=== PATIENT | female | born 1975 | race Caucasian/White ===

== ENCOUNTER 2016-06-04 10:11 | Inpatient (IN) | payer BC ==
--- NOTE | 2016-06-04 10:26 | ER Document Report ---
ED Medical Screen (RME) - General Stated Complaint: FEELING FAINT Notes: 40 yo female c/o feeling faint and dizzy x 1 week. + palpitations. pt with hx/ o ruptured diverticulitis last month. Pt c/o no energy, just not feeling well, hot flashes. Pt tachy with HR 143. denies any pain. hx/o DM, chronic sinusitis. TRAVEL OUTSIDE OF THE [place] IN LAST 30 DAYS: No - Related Data Allergies/Adverse Reactions: prednisone [Prednisone] Adverse Reaction (Verified 06/04/16 10:24) Past Medical History - Social History Family history: Reviewed & Not Pertinent Past Surgical History: Reports: Hx Cholecystectomy, Other - Sinus surgery 3. Ear tubes. - Immunizations Hx Diphtheria, Pertussis, Tetanus Vaccination: Yes Physical Exam - Vital signs Vitals: Temp Pulse Resp BP Pulse Ox 98.0 F 143 H 20 128/64 H 98 06/04/16 10:20 06/04/16 10:20 06/04/16 10:20 06/04/16 10:20 06/04/16 10:20 Course - Vital Signs Vital signs: Temp Pulse Resp BP Pulse Ox 98.0 F 143 H 20 128/64 H 98 06/04/16 10:20 06/04/16 10:20 06/04/16 10:20 06/04/16 10:20 06/04/16 10:20
[2016-06-04 10:58] LABS: ABSOLUTE EOSINOPHILS # (AUTO) 0.1 10^3/uL (0.0-0.6); ABSOLUTE LYMPHOCYTES (AUTO) 1.7 10^3/uL (0.5-4.7); ABSOLUTE MONOCYTES (AUTO) 1.1 10^3/uL (0.1-1.4); ABSOLUTE NEUT (AUTO) 8.9 10^3/uL (1.7-8.2); BASOPHILS % (AUTO) 0.3 % (0-2); EOSINOPHILS % (AUTO) 0.9 % (0-6); HEMATOCRIT 36.5 % (36.0-47.0); HEMOGLOBIN 12.6 g/dL (12.0-15.5); HGB HCT DIFFERENCE 1.3; LYMPHOCYTES % (AUTO) 14.5 % (13-45); MEAN CORPUSCULAR HEMOGLOBIN 29.3 pg (27.0-33.4); MEAN CORPUSCULAR HGB CONC 34.7 g/dL (32.0-36.0); MEAN CORPUSCULAR VOLUME 85 fl (80-97); MONOCYTES % (AUTO) 9.2 % (3-13); RED BLOOD COUNT 4.32 10^6/uL (3.72-5.28); RED CELL DISTRIBUTION WIDTH 13.9 % (11.5-14.0); SEGMENTED NEUTROPHILS % (AUTO) 75.1 % (42-78); WHITE BLOOD COUNT 11.9 10^3/uL (4.0-10.5)
[2016-06-04] MEDS ORDERED: RINGERS SOLUTION,LACTATED 1,000 ML IV PRN (11:07)
[2016-06-04 11:13] LABS: ALANINE AMINOTRANSFERASE 19 U/L (9-52); ALBUMIN 3.4 g/dL (3.5-5.0); ALKALINE PHOSPHATASE 79 U/L (38-126); ANION GAP 13 (5-19); ASPARTATE AMINO TRANSFERASE 24 U/L (14-36); BILIRUBIN,TOTAL 0.3 mg/dL (0.2-1.3); BLOOD UREA NITROGEN 8 mg/dL (7-20); CARBON DIOXIDE 31 mmol/L (22-30); CHLORIDE 99 mmol/L (98-107); CREATININE RESULT 0.59 mg/dL (0.52-1.25); GLUCOSE 162 mg/dL (75-110); LIPASE 49.5 U/L (23-300); POTASSIUM 3.4 mmol/L (3.6-5.0); SODIUM 143.2 mmol/L (137-145); TOTAL PROTEIN 7.6 g/dL (6.3-8.2)
[2016-06-04 11:51] LABS: APPEARANCE,URINE CLEAR; BILIRUBIN,URINE NEGATIVE (NEGATIVE); GLUCOSE, URINE NEGATIVE (NEGATIVE); KETONES,URINE NEGATIVE (NEGATIVE); LEUKOCYTE ESTERASE,URINE TRACE (NEGATIVE); NITRITE,URINE NEGATIVE (NEGATIVE); PROTEIN,URINE NEGATIVE (NEGATIVE); URINE SPECIFIC GRAVITY 1.008; UROBILINOGEN,URINE NEGATIVE mg/dL (<2.0)
[2016-06-04 12:10] LABS: PROTHROMBIN TIME 15.6 SEC (11.4-15.4)
[2016-06-04 12:11] LABS: PARTIAL THROMBOPLASTIN TIME 27.8 SEC (23.5-35.8)
[2016-06-04 12:29] LABS: CREATINE KINASE MB < 0.22 ng/mL (<4.55); TROPONIN I < 0.012 ng/mL
--- NOTE | 2016-06-04 13:40 | EKG REPORT ---
SEVERITY:- OTHERWISE NORMAL ECG - SINUS TACHYCARDIA : Confirmed by: Susie Hill MD 04-Jun-2016 13:39:11
[2016-06-04] MEDS ORDERED: ERTAPENEM SODIUM INJ 1 GM VIAL IV ONE (15:05)
[2016-06-04] MEDS ORDERED: RINGERS SOLUTION,LACTATED 1,000 ML IV ONE (15:06)
[2016-06-04] MEDS ORDERED: METRONIDAZOLE 500 MG/NS RTU 100 ML IV ONE (15:06)
--- NOTE | 2016-06-04 15:07 | ER Document Report ---
ED General - General Chief Complaint: Palpitations Stated Complaint: FEELING FAINT Information source: Patient Notes: This is a 40-year-old female recent hospitalization for ruptured diverticulitis/ possible tubo-ovarian abscess who is been medically managed but states she is getting worse. Her symptoms began weeks to months prior to her hospitalization in April. She describes sharp pelvic pains, difficulty with defecation. She 's had occasional fevers chills and sweats. She describes myalgias and malaise. She states she's having episodic lightheadedness, diaphoresis and near syncope. She describes the pain as sharp, intermittent and severe. It is worsened when she tries to have a bowel movement or urinate. TRAVEL OUTSIDE OF THE [place] IN LAST 30 DAYS: No - HPI Onset: Last week - Related Data Allergies/Adverse Reactions: prednisone [Prednisone] Adverse Reaction (Verified 06/04/16 10:24) Home Medications: Current Home Medications No Home Medications 06/04/16 [History] Past Medical History - General Information source: Patient - Social History Smoking Status: Unknown if Ever Smoked Frequency of alcohol use: None Drug Abuse: None Lives with: Family Family History: CAD - Paternal grandmother with coronary artery disease., DM Patient has suicidal ideation: No Patient has homicidal ideation: No Past Surgical History: Reports: Hx Cholecystectomy, Other - Sinus surgery 3. Ear tubes. - Immunizations Hx Diphtheria, Pertussis, Tetanus Vaccination: Yes Review of Systems - Review of Systems Constitutional: Chills, Fever, Malaise EENT: denies: Throat pain Cardiovascular: Palpitations, Syncope, Lightheaded Respiratory: Short of breath Gastrointestinal: Abdominal pain, Nausea, Vomiting Genitourinary: Flank pain. denies: Dysuria, Discharge Musculoskeletal: denies: Leg swelling Skin: denies: Rash Hematologic/Lymphatic: denies: Swollen glands Physical Exam - Vital signs Vitals: Temp Pulse Resp BP Pulse Ox 98.0 F 143 H 20 128/64 H 98 06/04/16 10:20 06/04/16 10:20 06/04/16 10:20 06/04/16 10:20 06/04/16 10:20 - General General appearance: Alert In distress: Mild - Appears to be feeling ill, tearful - HEENT Head: Normocephalic Mouth/Lips: Other - Thick white coating on the tongue Mucous membranes: Dry Pharynx: Other - Thrush Neck: Normal - Respiratory Respiratory status: No respiratory distress Breath sounds: Normal - Cardiovascular Rhythm: Regular, Tachycardia Murmur: No - Abdominal Inspection: Normal Bowel sounds: Normal Tenderness: Other - Moderate left lower quadrant tenderness without peritoneal signs - Back Back: Normal - Extremities General upper extremity: Normal inspection General lower extremity: Normal inspection - Neurological Orientation: AAOx4 - Psychological Associated symptoms: Anxious - Skin Skin Temperature: Warm Skin Moisture: Dry Skin Color: Normal Course - Re-evaluation Re-evalutation: 06/04/16 15:07 Dr. Dimas consulted on pt. Will come to ED. 06/04/16 15:[address] Mcadams who is willing to do the CT guided drainage of abscess at this time. Dr. Dimas in agreement with this plan. 06/04/16 22:03 - Vital Signs Vital signs: Temp Pulse Resp BP Pulse Ox 98.8 F 143 H 23 H 127/78 H 94 06/04/16 18:47 06/04/16 10:20 06/04/16 21:30 06/04/16 21:30 06/04/16 21:30 - Laboratory Result Diagrams: 06/04/16 10:34 06/04/16 10:34 Laboratory results interpreted by me: 06/04/16 06/04/16 06/04/16 10:34 10:34 10:34 WBC 11.9 H Absolute Neutrophils 8.9 H PT 15.6 H Potassium 3.4 L Carbon Dioxide 31 H Glucose 162 H Creatine Kinase Albumin 3.4 L Ur Leukocyte Esterase 06/04/16 06/04/16 10:34 11:05 WBC Absolute Neutrophils PT Potassium Carbon Dioxide Glucose Creatine Kinase < 20 L Albumin Ur Leukocyte Esterase TRACE H Discharge - Discharge Clinical Impression: Pelvic abscess Diverticulitis Qualifiers: Diverticulitis site: large intestine Diverticulitis bleeding: without bleeding Diverticulitis complication: with perforation and abscess Qualified Code(s): K57.20 - Diverticulitis of large intestine with perforation and abscess without bleeding Condition: Stable Disposition: ADMITTED INPATIENT Admitting Provider: Surgicalist Unit Admitted: Telemetry Scribe Attestation: 06/04/16 18:14 dagoberto
[2016-06-04] MEDS ORDERED: HYDROMORPHONE HCL INJ/PF 2 MG/ML AMPULE IV ONE ×2 (15:15→17:35)
[2016-06-04] MEDS ORDERED: ONDANSETRON HCL INJ/PF 4 MG/2 ML SDV IV ONE (15:15)
[2016-06-04] MEDS ORDERED: FENTANYL CITRATE INJ/PF 100 MCG/2 ML AMPUL ONE (16:10)
[2016-06-04] MEDS ORDERED: MIDAZOLAM 2 MG/2 ML INJ ONE (16:10)
[2016-06-04] MEDS ORDERED: DIPHENHYDRAMINE HCL 50 MG/ML VIAL IV ONE (18:35)
--- NOTE | 2016-06-04 18:43 | PDOC CONSULTATION ---
Consultation Consult Date: 06/04/16 Attending physician:: DIANA CARO Consult reason:: hydronephrosis History of Present Illness History of Present Illness: OFELIA SEGURA is a 40 year old female seen in consultation regarding left hydronephrosis. She came to the ER with abdominal pain and CT scan of the abdomen and pelvis demonstrated a large pelvic abscess related to her recent diverticulitis. Left hydronephrosis and hydroureter was noted that is mild. I reviewed these images. Of note there was delay in contrast excretion on the left side. She denies any flank pain at this time. She has a history of infrequent urinary tract infections. She says that she had a kidney infection about 10 years ago. Her creatinine today is normal at 0.5. No other complaints. Her urinalysis is negative except for trace leukocyte esterase. Past Surgical History Past Surgical History: Reports: Cholecystectomy, Other - Sinus surgery 3. Ear tubes. Social History Smoking Status: Unknown if Ever Smoked Frequency of Alcohol Use: None Hx Recreational Drug Use: No Drugs: None Hx Prescription Drug Abuse: No Family History Family History: CAD - Paternal grandmother with coronary artery disease., DM Parental Family History Reviewed: Yes Children Family History Reviewed: No Sibling(s) Family History Reviewed.: No Medication/Allergy Home Medications: Ciprofloxacin HCl [Cipro 500 mg Tablet] 500 mg PO Q12 #20 tablet 05/15/16 Metronidazole [Flagyl 500 mg Tablet] 500 mg PO Q6 #30 tablet 05/15/16 Promethazine HCl [Phenergan 25 mg Tablet] 25 mg PO Q4HP PRN #30 tablet 05/15/16 Tramadol HCl [Ultram 50 mg Tablet] 50 mg PO Q4HP PRN #60 tablet 05/15/16 Allergies/Adverse Reactions: prednisone [Prednisone] Adverse Reaction (Verified 06/04/16 10:24) Review of Systems Review of Systems: No dysuria, or uti symptoms. She did have urinary urgency prior to drainage of her abscess which has resolved. Lower abdominal pain. No flank pain. No other complaints. Physical Exam Vital Signs: Temp Pulse Resp BP Pulse Ox 98.0 F 143 H 19 121/68 96 06/04/16 10:20 06/04/16 10:20 06/04/16 17:30 06/04/16 17:30 06/04/16 17:30 Intake & Output 06/03/16 06/04/16 06/05/16 06:59 06:59 06:59 Weight 98.1 kg General appearance: PRESENT: mild distress Head exam: PRESENT: atraumatic Respiratory exam: PRESENT: unlabored GI/Abdominal exam: PRESENT: soft, other - lower abdominal tenderness present Gentrourinary exam: PRESENT: other - no CVT Neurological exam: PRESENT: alert, awake, oriented to person, oriented to place , oriented to time Psychiatric exam: PRESENT: appropriate affect Results Laboratory Results: 06/04/16 10:34 06/04/16 10:34 06/04/16 06/04/16 06/04/16 10:34 10:34 11:05 WBC 11.9 H RBC 4.32 Hgb 12.6 Hct 36.5 MCV 85 MCH 29.3 MCHC 34.7 RDW 13.9 Plt Count 332 Seg Neutrophils % 75.1 Lymphocytes % 14.5 Monocytes % 9.2 Eosinophils % 0.9 Basophils % 0.3 Absolute Neutrophils 8.9 H Absolute Lymphocytes 1.7 Absolute Monocytes 1.1 Absolute Eosinophils 0.1 Absolute Basophils 0.0 Sodium 143.2 Potassium 3.4 L Chloride 99 Carbon Dioxide 31 H Anion Gap 13 BUN 8 Creatinine 0.59 Est GFR ( Amer) > 60 Est GFR (Non-Af Amer) > 60 Glucose 162 H Lactic Acid Calcium 9.0 Total Bilirubin 0.3 AST 24 ALT 19 Alkaline Phosphatase 79 Total Protein 7.6 Albumin 3.4 L Lipase 49.5 Urine Color YELLOW Urine Appearance CLEAR Urine pH 7.0 Ur Specific [place] 1.008 Urine Protein NEGATIVE Urine Glucose (UA) NEGATIVE Urine Ketones NEGATIVE Urine Blood NEGATIVE Urine Nitrite NEGATIVE Ur Leukocyte Esterase TRACE H Urine WBC (Auto) 2 Urine RBC (Auto) 0 06/04/16 11:40 WBC RBC Hgb Hct MCV MCH MCHC RDW Plt Count Seg Neutrophils % Lymphocytes % Monocytes % Eosinophils % Basophils % Absolute Neutrophils Absolute Lymphocytes Absolute Monocytes Absolute Eosinophils Absolute Basophils Sodium Potassium Chloride Carbon Dioxide Anion Gap BUN Creatinine Est GFR ( Amer) Est GFR (Non-Af Amer) Glucose Lactic Acid 1.2 Calcium Total Bilirubin AST ALT Alkaline Phosphatase Total Protein Albumin Lipase Urine Color Urine Appearance Urine pH Ur Specific [place] Urine Protein Urine Glucose (UA) Urine Ketones Urine Blood Urine Nitrite Ur Leukocyte Esterase Urine WBC (Auto) Urine RBC (Auto) 06/04/16 06/04/16 10:34 10:34 Creatine Kinase < 20 L CK-MB (CK-2) < 0.22 Troponin I < 0.012 Impressions: Chest X-Ray 06/04/16 11:07 IMPRESSION: Linear atelectasis in both lung bases. Abdomen/Pelvis CT 06/04/16 11:12 IMPRESSION: 1. Progressive pelvic abscesses. Diverticulitis with a large gas and fluid containing midline abscess which has grown since April. There is a smaller abscess now noted in the left hemipelvis which appears to be causing mild left ureteral obstruction. Pertinent positive or negative findings of the imaging study called to AMINTA SOSA MD at15:05 on 06/04/2016. Percutaneous Drainage 06/04/16 15:11 IMPRESSION: CT GUIDED DRAINAGE OF THE MIDLINE PELVIC ABSCESS BETWEEN THE UTERUS AND BLADDER PERFORMED WITHOUT IMMEDIATE COMPLICATION. ASPIRATED FLUID SENT FOR TESTING ABOVE. CATHETER PLACED TO A VACUUM ACCORDION SUCTION BAG. Assessment & Plan - Diagnosis (1) Hydronephrosis Qualifiers: Hydronephrosis type: other Qualified Code(s): N13.39 - Other hydronephrosis Is this a current diagnosis for this admission?: NoPlan: 40-year-old female with left hydronephrosis and hydroureter secondary to large pelvic abscess. We discussed treatment interventions including ureteral stent and percutaneous nephrostomy. The patient has a normal creatinine. She does not have any flank pain. I expect the obstruction is self-limited as the abscess has been drained and will likely improve. I recommended a renal scan tomorrow. The patient and her family's questions were answered. We'll follow. I discussed her plan of care with Gen. surgery Dr. Dimas. (3) Hydroureter Is this a current diagnosis for this admission?: No
[2016-06-04] MEDS ORDERED: ONDANSETRON HCL INJ/PF 4 MG/2 ML SDV IV PRN (23:12)
--- NOTE | 2016-06-05 00:04 | PDOC H&P ---
History of Present Illness Admission Date/PCP: 06/04/16 18:25 History of Present Illness: OFELIA SEGURA is a 40 year old white female known to the surgery service for diverticulitis. Throughout 2015, she had approximately 5 episodes of lower abdominal pain. These were generally attributed to UTIs, however in April she was definitively diagnosed with perforated diverticulitis with a CT scan. She was managed as an inpatient. She was discharged home in late April. She continued to finish a course of antibiotics upon discharge. Her symptoms, which had initially decreased, recurred. She had severe lower abdominal pain, extension of her pain to her lower back, nausea, constipation, pain with urination, fevers, chills, hot flashes. She follow-up with Dr. Gregg in clinic on 05/29/2016. He prescribed her another 2 weeks of Levaquin and Flagyl.. She continued to have symptoms despite restarting these antibiotics. Over the last 3 days she has had severe abdominal pain as well as other symptoms: 10/10 abdominal pain, lightheadedness, dizziness, chills, hot flashes, sweats, pain with urination, fast heart rate. She has had thrush which was being treated by Dr. Gregg. Due to her thrush, she has occasional dry heaves but no nausea or vomiting per se. She presented to surgery clinic to be seen in follow-up today , however Dr. Gregg was unavailable as he was called for emergency surgery. While in clinic she had lightheadedness and sweats as well as weakness and was referred to the emergency department. In the emergency department CT scan revealed 2 large pelvic abscesses. Interventional radiology placed a drain in the larger more accessible pelvic abscess with a large volume of purulent material returned. CT scan also revealed left hydronephrosis for which urology was consult. The hydronephrosis was felt to be secondary to pelvic abscesses and inflammation. Review of systems positive for recurrent UTIs over the past year. Positive for thrush. She may have had diverticulitis, not UTIs, which were misdiagnosed due to her not reviewing her GI symptoms out of embarrassment. Review of systems also positive for some depressed mood, but no clinical diagnosis or medication. All other systems are reviewed and are negative. Past Medical History EENT Medical History: Reports: Other - Sinus troubles Endocrine Medical History: Reports: Obesity Renal/ Medical History: Reports: Other - Recurrent UTIs GI Medical History: Reports: Diverticulitis Past Surgical History Past Surgical History: Reports: Cholecystectomy, Other - Sinus surgery 3. Ear tubes. Social History Information Source: Patient Lives with: Family Smoking Status: Never Smoker Frequency of Alcohol Use: None Hx Recreational Drug Use: No Drugs: None Hx Prescription Drug Abuse: No - Advance Directive Resuscitation Status: Full Code Family History Family History: CAD - Paternal grandmother with coronary artery disease., DM Parental Family History Reviewed: Yes Children Family History Reviewed: Yes Sibling(s) Family History Reviewed.: Yes Medication/Allergy Home Medications: No Home Medications 06/04/16 Allergies/Adverse Reactions: prednisone [Prednisone] Adverse Reaction (Verified 06/04/16 10:24) Review of Systems All systems: reviewed and no additional remarkable complaints except as stated Physical Exam Vital Signs: Temp Pulse Resp BP Pulse Ox 98.6 F 116 H 20 133/71 H 97 06/04/16 22:43 06/04/16 22:43 06/04/16 22:43 06/04/16 22:43 06/04/16 22:43 General appearance: PRESENT: no acute distress, morbidly obese Head exam: PRESENT: normocephalic Eye exam: PRESENT: EOMI Mouth exam: PRESENT: other - Thick [place]-white plaque consistent with thrush Throat exam: PRESENT: other - Thick [place] white plaque consistent with thrush Neck exam: ABSENT: JVD, lymphadenopathy, tenderness, thyromegaly Respiratory exam: PRESENT: clear to auscultation rahul Cardiovascular exam: PRESENT: RRR GI/Abdominal exam: PRESENT: distended, soft, tenderness, other - Drain exiting the suprapubic area. Sanguinopurulent material is present in the drain.. ABSENT: guarding, rebound Extremities exam: ABSENT: calf tenderness, pedal edema Musculoskeletal exam: ABSENT: tenderness Neurological exam: PRESENT: alert, oriented to person, oriented to place, oriented to time, oriented to situation Psychiatric exam: PRESENT: appropriate affect, normal mood Skin exam: ABSENT: jaundice, rash Results Laboratory Results: Labs reviewed. Impressions: Chest X-Ray 06/04/16 11:07 IMPRESSION: Linear atelectasis in both lung bases. Abdomen/Pelvis CT 06/04/16 11:12 IMPRESSION: 1. Progressive pelvic abscesses. Diverticulitis with a large gas and fluid containing midline abscess which has grown since April. There is a smaller abscess now noted in the left hemipelvis which appears to be causing mild left ureteral obstruction. Pertinent positive or negative findings of the imaging study called to AMINTA SOSA MD at15:05 on 06/04/2016. Percutaneous Drainage 06/04/16 15:11 IMPRESSION: CT GUIDED DRAINAGE OF THE MIDLINE PELVIC ABSCESS BETWEEN THE UTERUS AND BLADDER PERFORMED WITHOUT IMMEDIATE COMPLICATION. ASPIRATED FLUID SENT FOR TESTING ABOVE. CATHETER PLACED TO A VACUUM ACCORDION SUCTION BAG. Status: Image reviewed by me Assessment & Plan - Diagnosis (1) Hydronephrosis Qualifiers: Hydronephrosis type: other Qualified Code(s): N13.39 - Other hydronephrosis Is this a current diagnosis for this admission?: YesPlan: urology consult. (2) Hydroureter Is this a current diagnosis for this admission?: YesPlan: Urology consult (3) Pelvic abscess Is this a current diagnosis for this admission?: YesPlan: Drain was placed in the accessible abscess. The other abscess is smaller and difficult to reach. Will treat with nonoperative management. May need to reimage in the future to determine if its resolving. (4) Morbid obesity with BMI of 40.0-44.9, adult Is this a current diagnosis for this admission?: Yes (5) Perforation of sigmoid colon due to diverticulitis Is this a current diagnosis for this admission?: YesPlan: Perforated diverticulitis with 2 abdominal abscesses. 1 abscess treated with interventional radiology placed drain. Culture sent. Nothing by mouth, IV fluids, IV antibiotics, SCDs, Lovenox, incentive spirometry, repeat labs in a.m. Urology consult for hydronephrosis/hydroureter. He feels this is secondary to the infectious process and will likely resolve with conservative management. He is considering a renal scan in the near future to reevaluate.
[2016-06-05] MEDS ORDERED: METRONIDAZOLE 500 MG/NS RTU 100 ML IV ONE (00:15)
[2016-06-05] MEDS ORDERED: FLUCONAZOLE 100 MG TABLET PO ONE (00:15)
[2016-06-05] MEDS: MORPHINE SULFATE 10 MG/ML INJ IV PRN ×4 (00:21→21:27)
[2016-06-05] MEDS: POTASSI CL 20 MEQ/D5-1/2NS 1L 1,000 ML IV PRN ×3 (00:22→21:20)
[2016-06-05] MEDS: METRONIDAZOLE 500 MG/NS RTU 100 ML IV SCH ×3 (05:27→21:19)
[2016-06-05 05:55] LABS: HEMATOCRIT 29.6 % (36.0-47.0); MEAN CORPUSCULAR HEMOGLOBIN 29.3 pg (27.0-33.4); MEAN CORPUSCULAR HGB CONC 34.4 g/dL (32.0-36.0); MEAN CORPUSCULAR VOLUME 85 fl (80-97); RED BLOOD COUNT 3.47 10^6/uL (3.72-5.28); WHITE BLOOD COUNT 7.6 10^3/uL (4.0-10.5)
[2016-06-05 06:12] LABS: HEMOGLOBIN 10.2 g/dL (12.0-15.5)
[2016-06-05 06:17] LABS: ALANINE AMINOTRANSFERASE 20 U/L (9-52); ALBUMIN 2.6 g/dL (3.5-5.0); ALKALINE PHOSPHATASE 54 U/L (38-126); ANION GAP 9 (5-19); ASPARTATE AMINO TRANSFERASE 18 U/L (14-36); BILIRUBIN,TOTAL 0.3 mg/dL (0.2-1.3); BLOOD UREA NITROGEN 7 mg/dL (7-20); CALCIUM 8.5 mg/dL (8.4-10.2); CARBON DIOXIDE 30 mmol/L (22-30); CHLORIDE 103 mmol/L (98-107); CREATININE RESULT 0.56 mg/dL (0.52-1.25); GLUCOSE 144 mg/dL (75-110); PHOSPHORUS 3.8 mg/dL (2.5-4.5); POTASSIUM 3.6 mmol/L (3.6-5.0); SODIUM 142.1 mmol/L (137-145); TOTAL PROTEIN 5.5 g/dL (6.3-8.2)
[2016-06-05] MEDS: ENOXAPARIN SODIUM INJ 40 MG/0.4 ML DISP.SYRIN SUBCUT SCH (09:16)
[2016-06-05] MEDS: FLUCONAZOLE 100 MG TABLET PO SCH (09:17)
--- NOTE | 2016-06-05 09:30 | PDOC PROGRESS REPORT ---
Subjective Progress Note for:: 06/05/16 Subjective:: feels much better status post abscess drainage. Physical Exam Vital Signs: Temp Pulse Resp BP Pulse Ox 98.6 F 102 H 18 124/59 L 97 06/05/16 07:37 06/05/16 07:37 06/05/16 07:37 06/05/16 07:37 06/05/16 07:37 Intake & Output 06/04/16 06/05/16 06/06/16 06:59 06:59 06:59 Intake Total 0 Output Total 425 Balance -425 General appearance: PRESENT: no acute distress Respiratory exam: PRESENT: clear to auscultation rahul Cardiovascular exam: PRESENT: RRR GI/Abdominal exam: PRESENT: other - Soft, nondistended, very mild lower abdominal tenderness. Drain in place with drainage of the purulent fluid Extremities exam: PRESENT: other - No swelling Results Laboratory Results: 06/05/16 05:04 06/05/16 05:04 06/05/16 06/05/16 05:04 05:04 WBC 7.6 RBC 3.47 L Hgb 10.2 L D Hct 29.6 L MCV 85 MCH 29.3 MCHC 34.4 RDW 14.0 Plt Count 248 Sodium 142.1 Potassium 3.6 Chloride 103 Carbon Dioxide 30 Anion Gap 9 BUN 7 Creatinine 0.56 Est GFR ( Amer) > 60 Est GFR (Non-Af Amer) > 60 Glucose 144 H Calcium 8.5 Phosphorus 3.8 Magnesium 2.0 Total Bilirubin 0.3 AST 18 ALT 20 Alkaline Phosphatase 54 Total Protein 5.5 L Albumin 2.6 L Impressions: Chest X-Ray 06/04/16 11:07 IMPRESSION: Linear atelectasis in both lung bases. Abdomen/Pelvis CT 06/04/16 11:12 IMPRESSION: 1. Progressive pelvic abscesses. Diverticulitis with a large gas and fluid containing midline abscess which has grown since April. There is a smaller abscess now noted in the left hemipelvis which appears to be causing mild left ureteral obstruction. Pertinent positive or negative findings of the imaging study called to AMINTA SOSA MD at15:05 on 06/04/2016. Percutaneous Drainage 06/04/16 15:11 IMPRESSION: CT GUIDED DRAINAGE OF THE MIDLINE PELVIC ABSCESS BETWEEN THE UTERUS AND BLADDER PERFORMED WITHOUT IMMEDIATE COMPLICATION. ASPIRATED FLUID SENT FOR TESTING ABOVE. CATHETER PLACED TO A VACUUM ACCORDION SUCTION BAG. Assessment & Plan - Diagnosis (1) Perforation of sigmoid colon due to diverticulitis Is this a current diagnosis for this admission?: YesPlan: Status post drainage of pelvic abscess. Patient doing much better after drainage procedure. Patient will require a sigmoidectomy but the will need to determine timing of this procedure. Continue antibiotics and the drain in light of her marked improvement with these measures.
[2016-06-05] MEDS ORDERED: ERTAPENEM SODIUM 1 GM in NORMAL SALINE 50 ML IV SCH (10:00)
[2016-06-05] MEDS ORDERED: FUROSEMIDE INJ/PF 40 MG/4 ML SDV ONE (10:30)
[2016-06-05] MEDS: ERTAPENEM SODIUM 1 GM in NORMAL SALINE 50 ML IV SCH (17:23)
[2016-06-06] MEDS: POTASSI CL 20 MEQ/D5-1/2NS 1L 1,000 ML IV PRN ×2 (06:19→17:01)
[2016-06-06] MEDS: METRONIDAZOLE 500 MG/NS RTU 100 ML IV SCH ×2 (06:19→14:14)
[2016-06-06] MEDS: ENOXAPARIN SODIUM INJ 40 MG/0.4 ML DISP.SYRIN SUBCUT SCH (08:37)
[2016-06-06] MEDS: FLUCONAZOLE 100 MG TABLET PO SCH (10:38)
[2016-06-06] MEDS: PROMETHAZINE HCL INJ 25 MG/1 ML VIAL IV PRN (12:10)
[2016-06-06] MEDS: ERTAPENEM SODIUM 1 GM in NORMAL SALINE 50 ML IV SCH (17:02)
[2016-06-06] MEDS: MORPHINE SULFATE 10 MG/ML INJ IV PRN (17:07)
--- NOTE | 2016-06-06 18:38 | PROGRESS NOTE E ---
Progress Note NAME: OFELIA SEGURA : 1975 AGE: 40Y DATE: 06/06/2016 ROOM: 404 SUBJECTIVE: The patient is feeling much better and is without any pain, no longer has any dysuria. OBJECTIVE: VITAL SIGNS: Blood pressure 132/75, temperature 98.9, pulse 96, respirations 18, saturations 98% on room air. ABDOMEN: The patient's abdomen is soft. Bowel sounds are present. The drainage from the percutaneous pelvic abscess drain is only 25 mL. ASSESSMENT: STATUS POST PERCUTANEOUS DRAINAGE OF PELVIC ABSCESS SECONDARY TO PERFORATED SIGMOID DIVERTICULITIS. PLAN: The patient is to undergo elective sigmoid colectomy with possible primary anastomosis. The patient is in need of ureteral stents, and Dr. Gregg has contacted the urologist who will place ureteral stents at the time of the surgery. DICTATING PHYSICIAN: TERESA PARISH M.D. [id number] PHY#: [id number] ID: [id number] JOB#: [id number] ACCT: [id number] cc:TERESA PARISH M.D. >
[2016-06-06] MEDS ORDERED: ACETAMINOPHEN 325 MG TABLET PO PRN (21:40)
[2016-06-07] MEDS: METRONIDAZOLE 500 MG/NS RTU 100 ML IV SCH ×4 (00:19→21:19)
[2016-06-07] MEDS: POTASSI CL 20 MEQ/D5-1/2NS 1L 1,000 ML IV PRN ×2 (05:46→17:34)
[2016-06-07] MEDS: ENOXAPARIN SODIUM INJ 40 MG/0.4 ML DISP.SYRIN SUBCUT SCH (13:23)
[2016-06-07] MEDS: FLUCONAZOLE 100 MG TABLET PO SCH (13:23)
[2016-06-07] MEDS: MORPHINE SULFATE 10 MG/ML INJ IV PRN ×2 (14:09→22:38)
[2016-06-07] MEDS: ERTAPENEM SODIUM 1 GM in NORMAL SALINE 50 ML IV SCH (17:34)
[2016-06-07] MEDS: PROMETHAZINE HCL INJ 25 MG/1 ML VIAL IV PRN (19:35)
--- NOTE | 2016-06-07 22:23 | PROGRESS NOTE E ---
Progress Note NAME: OFELIA SEGURA : 1975 AGE: 40Y DATE: 06/07/2016 ROOM: 404 SUBJECTIVE: The patient feels a little better, is presently sitting on the commode. The patient denies any dysuria at this time. OBJECTIVE: VITAL SIGNS: Noted blood pressure 146/77, temperature 97.3, pulse 106, respiratory rate is 18, saturation 99% on room air. ABDOMEN: The patient's abdomen is soft. Bowel sounds are present. Her drainage from the percutaneous drain in the pelvic abscess totals 160 mL over the last 24 hours. It is serosanguineous in appearance. ASSESSMENT: STATUS POST PERCUSSION DRAINAGE OF PELVIC ABSCESS POST PERFORATED SIGMOID DIVERTICULITIS. PLAN: The patient will undergo elective colon resection with a primary anastomosis versus colostomy depending on the findings. The patient will need ureteral stents at the time of surgery. DICTATING PHYSICIAN: TERESA PARISH M.D. [id number] PHY#: [id number] ID: [id number] JOB#: [id number] ACCT: [id number] cc:TERESA PARISH M.D. >
[2016-06-08] MEDS: POTASSI CL 20 MEQ/D5-1/2NS 1L 1,000 ML IV PRN (04:45)
[2016-06-08] MEDS: METRONIDAZOLE 500 MG/NS RTU 100 ML IV SCH ×3 (05:22→21:55)
[2016-06-08] MEDS: ENOXAPARIN SODIUM INJ 40 MG/0.4 ML DISP.SYRIN SUBCUT SCH (08:27)
[2016-06-08] MEDS: FLUCONAZOLE 100 MG TABLET PO SCH (10:20)
[2016-06-08] MEDS: PROMETHAZINE HCL INJ 25 MG/1 ML VIAL IV PRN (13:02)
[2016-06-08] MEDS: ERTAPENEM SODIUM 1 GM in NORMAL SALINE 50 ML IV SCH (18:04)
[2016-06-08] MEDS: ONDANSETRON HCL INJ/PF 4 MG/2 ML SDV IV PRN (18:41)
--- NOTE | 2016-06-08 20:43 | PROGRESS NOTE E ---
Progress Note NAME: OFELIA SEGURA : 1975 AGE: 40Y DATE: 06/08/2016 ROOM: 404 SUBJECTIVE: The patient complains of nausea as I advanced her diet to regular. OBJECTIVE: VITAL SIGNS: Blood pressure 125/69, temperature is 98, pulse rate 97, respirations 17, O2 100% by pulse oximetry. ABDOMEN: The patient's abdomen is soft. Bowel sounds are present. The percutaneous drain in the pelvis for the pelvic abscess drained only 15 mL in the last 48 hours. ASSESSMENT: PERFORATED SIGMOID DIVERTICULITIS STATUS POST PERCUTANEOUS CT-GUIDED DRAINAGE OF A PELVIC ABSCESS. PLAN: The patient is in need of ureteral stents at the time of her sigmoid colectomy which will be presumably scheduled for sometime this week. DICTATING PHYSICIAN: TERESA PARISH M.D. [id number] PHY#: [id number] ID: [id number] JOB#: [id number] ACCT: [id number] cc:TERESA PARISH M.D. >
[2016-06-09] MEDS: POTASSI CL 20 MEQ/D5-1/2NS 1L 1,000 ML IV PRN ×2 (02:19→14:18)
[2016-06-09 05:06] LABS: ABSOLUTE BASOPHILS # (AUTO) 0.1 10^3/uL (0.0-0.2); ABSOLUTE EOSINOPHILS # (AUTO) 0.2 10^3/uL (0.0-0.6); ABSOLUTE LYMPHOCYTES (AUTO) 1.6 10^3/uL (0.5-4.7); ABSOLUTE MONOCYTES (AUTO) 0.5 10^3/uL (0.1-1.4); ABSOLUTE NEUT (AUTO) 5.2 10^3/uL (1.7-8.2); BASOPHILS % (AUTO) 0.9 % (0-2); EOSINOPHILS % (AUTO) 2.6 % (0-6); HEMATOCRIT 35.8 % (36.0-47.0); HEMOGLOBIN 11.5 g/dL (12.0-15.5); HGB HCT DIFFERENCE -1.3; LYMPHOCYTES % (AUTO) 21.2 % (13-45); MEAN CORPUSCULAR VOLUME 88 fl (80-97); MONOCYTES % (AUTO) 6.2 % (3-13); RED BLOOD COUNT 4.09 10^6/uL (3.72-5.28); SEGMENTED NEUTROPHILS % (AUTO) 69.1 % (42-78); WHITE BLOOD COUNT 7.6 10^3/uL (4.0-10.5)
[2016-06-09 05:33] LABS: ALANINE AMINOTRANSFERASE 26 U/L (9-52); ALBUMIN 2.8 g/dL (3.5-5.0); ALKALINE PHOSPHATASE 62 U/L (38-126); ANION GAP 11 (5-19); ASPARTATE AMINO TRANSFERASE 28 U/L (14-36); BILIRUBIN,TOTAL 0.3 mg/dL (0.2-1.3); BLOOD UREA NITROGEN 3 mg/dL (7-20); CALCIUM 8.8 mg/dL (8.4-10.2); CARBON DIOXIDE 27 mmol/L (22-30); CHLORIDE 103 mmol/L (98-107); CREATININE RESULT 0.53 mg/dL (0.52-1.25); GLUCOSE 113 mg/dL (75-110); SODIUM 140.5 mmol/L (137-145); TOTAL PROTEIN 6.2 g/dL (6.3-8.2)
[2016-06-09] MEDS: METRONIDAZOLE 500 MG/NS RTU 100 ML IV SCH ×3 (05:33→21:54)
[2016-06-09] MEDS: ENOXAPARIN SODIUM INJ 40 MG/0.4 ML DISP.SYRIN SUBCUT SCH (10:23)
[2016-06-09] MEDS: FLUCONAZOLE 100 MG TABLET PO SCH (10:23)
[2016-06-09] MEDS: ONDANSETRON HCL INJ/PF 4 MG/2 ML SDV IV PRN ×2 (10:24→23:13)
[2016-06-09] MEDS: MORPHINE SULFATE 10 MG/ML INJ IV PRN (15:41)
--- NOTE | 2016-06-09 16:18 | PDOC PROGRESS REPORT ---
Subjective Progress Note for:: 06/09/16 Subjective:: Patient states she feels better. The drainage from her catheter has diminished. Physical Exam Vital Signs: Temp Pulse Resp BP Pulse Ox 98.0 F 111 H 16 142/78 H 100 06/09/16 12:04 06/09/16 14:00 06/09/16 12:04 06/09/16 12:04 06/09/16 12:04 Intake & Output 06/08/16 06/09/16 06/10/16 06:59 06:59 06:59 Intake Total 2713 3003 100 Output Total 175 30 10 Balance 2538 2973 90 General appearance: PRESENT: no acute distress GI/Abdominal exam: PRESENT: other - The abdomen is soft, without peritoneal signs. This minimal guarding in the side of the catheter. The catheter is putting out serosanguineous material. Results Laboratory Results: 06/09/16 04:23 06/09/16 04:23 06/09/16 06/09/16 04:23 04:23 WBC 7.6 RBC 4.09 Hgb 11.5 L Hct 35.8 L MCV 88 MCH 28.0 MCHC 32.0 RDW 14.0 Plt Count 330 Seg Neutrophils % 69.1 Lymphocytes % 21.2 Monocytes % 6.2 Eosinophils % 2.6 Basophils % 0.9 Absolute Neutrophils 5.2 Absolute Lymphocytes 1.6 Absolute Monocytes 0.5 Absolute Eosinophils 0.2 Absolute Basophils 0.1 Sodium 140.5 Potassium 4.0 Chloride 103 Carbon Dioxide 27 Anion Gap 11 BUN 3 L Creatinine 0.53 Est GFR ( Amer) > 60 Est GFR (Non-Af Amer) > 60 Glucose 113 H Calcium 8.8 Total Bilirubin 0.3 AST 28 ALT 26 Alkaline Phosphatase 62 Total Protein 6.2 L Albumin 2.8 L Impressions: Chest X-Ray 06/04/16 11:07 IMPRESSION: Linear atelectasis in both lung bases. Percutaneous Drainage 06/04/16 15:11 IMPRESSION: CT GUIDED DRAINAGE OF THE MIDLINE PELVIC ABSCESS BETWEEN THE UTERUS AND BLADDER PERFORMED WITHOUT IMMEDIATE COMPLICATION. ASPIRATED FLUID SENT FOR TESTING ABOVE. CATHETER PLACED TO A VACUUM ACCORDION SUCTION BAG. Renal Scan Nuclear Medicine 06/05/16 00:00 IMPRESSION: Symmetric perfusion, symmetric split renal function Good washout of activity from both intrarenal collecting systems post Lasix Abdomen/Pelvis CT 06/09/16 00:00 IMPRESSION: 1. DIVERTICULITIS INVOLVING THE SIGMOID COLON. PREVIOUSLY SEEN PELVIC ABSCESS HAS ESSENTIALLY RESOLVED FOLLOWING PERCUTANEOUS DRAINAGE AND INDWELLING PIGTAIL CATHETER. RESIDUAL INFLAMMATORY CHANGES IN THIS AREA WITH NO DISCRETE FLUID COLLECTION AT THE SITE OF THE PREVIOUS LARGE ABSCESS. THE 2ND FLUID COLLECTION ON THE LEFT SIDE OF THE PELVIS IS SLIGHTLY SMALLER, CURRENTLY MEASURING 2.8 CM WITH PRIOR MEASUREMENT OF 3.4 CM. 2. NO OTHER SIGNIFICANT FINDINGS. Assessment & Plan - Diagnosis (1) Perforation of sigmoid colon due to diverticulitis Is this a current diagnosis for this admission?: YesPlan: 1. Complex abscesses in the pelvis consistent with hinchey classification 2, status post intravenous antibiotics, and radiographically directed transabdominal wall pelvic catheter drain. Clinically improved. 2. I obtained a CT scan of the abdomen and pelvis today assessing interval change. The abscess has reduced markedly in size. 3. Management strategies discussed with Dr. Gregg, surgical partner. Interval sigmoid colectomy with primary anastomosis would be ideal, but notable intraoperative challenge. Given limited surgical resources and also more hospital, we will explore potential availability of a regional support, consideration for transfer. - Time Time Spent with patient: 15-24 minutes
[2016-06-09] MEDS: ERTAPENEM SODIUM 1 GM in NORMAL SALINE 50 ML IV SCH (17:36)
[2016-06-10] MEDS: METRONIDAZOLE 500 MG/NS RTU 100 ML IV SCH (06:44)
[2016-06-10] MEDS: FLUCONAZOLE 100 MG TABLET PO SCH (09:28)
[2016-06-10] MEDS: ENOXAPARIN SODIUM INJ 40 MG/0.4 ML DISP.SYRIN SUBCUT SCH (09:28)
--- NOTE | 2016-06-10 09:53 | DISCHARGE SUMMARY E ---
Discharge Summary NAME: OFELIA SEGURA : 1975 AGE: 40Y ADMITTED: 06/04/2016 DISCHARGED: 06/10/2016 DISCHARGE DIAGNOSIS: Diverticulitis with diverticular abscess. PROCEDURE PERFORMED DURING HOSPITALIZATION: Percutaneous pelvic abscess drainage performed by Dr. Mcadams on 06/04/2016. HOSPITAL COURSE: The patient underwent the above mentioned drainage. She did well postoperatively with marked improvement of her abdominal pain. She was tolerating a diet well at the time of discharge. Patient underwent a nuclear medicine renal scan, which demonstrated dilation of the left renal pelvis and calices with asymmetric increase accumulation of activity over the right collecting system. However, post Lasix, there was good washout of activity bilaterally. Patient was tolerating a diet well with minimal amount of abdominal pain at the time of discharge. A CT scan day prior to discharge demonstrated resolution of the pelvic abscess, although patient still had a left pelvic fluid collection that was diminished from 3.4 to 2.8 cm in size. Discussions were made with the patient concerning referral to a tertiary care center for definitive management of her complicated diverticulitis in light of the findings on the CT scan and the technical expertise that will be required to take care of her. She agreed to see colorectal surgery at [facility] as an outpatient. Dr. Rojas has discussed this case with the colorectal surgeon's partner at [facility] who agrees with this plan. However, the colorectal surgeon has apparently been out of town, and we will make this arrangement after the patient is discharged today. To make absolutely certain that she gets over to the tertiary care center, I will arrange a followup appointment for the patient to see me next week. The patient is encouraged to stay active. DISCHARGE MEDICATIONS: 1. Cipro 500 mg 1 p.o. b.i.d. 2. Flagyl 500 mg 1 p.o. t.i.d. 3. Percocet 5/325 1 p.o. q. 4 hours p.r.n. pain. She is to follow a low-residue diet. Drain care instructions were given to the patient prior to discharge. DICTATING PHYSICIAN: MARIA ESTHER PRICE M.D. [id number] PHY#: [id number] ID: [id number] JOB#: [id number] ACCT: [id number] cc:Kamryn VALDOVINOS, FISHER >
[2016-06-10] MEDS: MORPHINE SULFATE 10 MG/ML INJ IV PRN (10:37)
[2016-06-10 11:21] VITALS: BP 132/75
== END 2016-06-10 14:28 | disposition home or self-care (01) | DRG 391 ==
LOC: ER 10:11 → EH 18:25 → UNDOADMIN 18:25 → EH 22:30 → 4N 22:30 → EH 23:12 → 4N 23:12
PROVIDERS: ATTEND Surgery
PROC: 0W9J30Z Drainage of Pelvic Cavity with Drainage Device, Percutaneous Approach (ICD-10-PCS; principal; 2016-06-04)
DX: K57.20 Diverticulitis of large intestine with perforation and abscess without bleeding (principal); K65.1 Peritoneal abscess; N13.30 Unspecified hydronephrosis; B37.0 Candidal stomatitis; Z68.41 Body mass index [BMI] 40.0-44.9, adult; E66.9 Obesity, unspecified; E11.9 Type 2 diabetes mellitus without complications; Z90.49 Acquired absence of other specified parts of digestive tract; Z87.440 Personal history of urinary (tract) infections; Z82.49 Family history of ischemic heart disease and other diseases of the circulatory system; Z83.3 Family history of diabetes mellitus; Z88.8 Allergy status to other drugs, medicaments and biological substances
CPT/HCPCS: 36415; 71010; 74177; 75989; 78707; 80053; 81001; 81025; 82550; 82553; 83605; 83690; 83735; 84100; 84484; 85025; 85027; 85610; 85730; 87040; 87070; 87075; 87077; 87186; 87205; 93005; 93010; 94799; 96365; 96367; 96375; 96376; 99285; A9562; C1729; C1769; C1894; J1170; J1200; J1335; J1650; J1940; J2250; J2270; J2405; J2550; J3010; J3480; J3490; J7120

== ENCOUNTER 2016-06-15 17:52 | Emergency (ER) | payer BC ==
[2016-06-15 18:16] VITALS: BP 136/91
--- NOTE | 2016-06-15 18:23 | ER Document Report ---
ED Medical Screen (RME) - General Stated Complaint: POST OP CONCERNS Mode of Arrival: Ambulatory Information source: Patient Notes: 40-year-old female presents to the emergency department complaining of drainage from surgical site. Patient reports had pelvic absces drainage and has indwelling drain. States after post-op visit 2 days ago when her drain was flushed and dressing changed she has noted increased drainage. Requesting dressing change. Denies fever, n/v. I have greeted and performed a rapid initial assessment of this patient. A comprehensive ED assessment and evaluation of the patient, analysis of test results and completion of the medical decision making process will be conducted by additional ED providers. TRAVEL OUTSIDE OF THE [place] IN LAST 30 DAYS: No - Related Data Allergies/Adverse Reactions: prednisone [Prednisone] Adverse Reaction (Verified 06/04/16 10:24) Past Medical History - Social History Frequency of alcohol use: None Drug Abuse: None Family history: Reviewed & Not Pertinent Renal/ Medical History: Denies: Hx Peritoneal Dialysis GI Medical History: Reports: Hx Diverticulitis Past Surgical History: Reports: Hx Cholecystectomy, Other - Sinus surgery 3. Ear tubes. - Immunizations Hx Diphtheria, Pertussis, Tetanus Vaccination: Yes Physical Exam - Vital signs Vitals: Temp Pulse Resp BP Pulse Ox 98.7 F 107 H 18 136/91 H 99 06/15/16 18:10 06/15/16 18:10 06/15/16 18:10 06/15/16 18:10 06/15/16 18:10 - General General appearance: Appears well, Alert In distress: None Course - Vital Signs Vital signs: Temp Pulse Resp BP Pulse Ox 98.7 F 107 H 18 136/91 H 99 06/15/16 18:10 06/15/16 18:10 06/15/16 18:10 06/15/16 18:10 06/15/16 18:10
== END 2016-06-15 18:15 | disposition left against medical advice (07) ==
LOC: ER 17:52
DX: Z48.01 Encounter for change or removal of surgical wound dressing (principal); Z53.20 Procedure and treatment not carried out because of patient's decision for unspecified reasons
CPT/HCPCS: 99281

== ENCOUNTER 2016-07-02 10:19 | Inpatient (IN) | payer BC ==
[2016-07-02 15:42] LABS: ABSOLUTE BASOPHILS # (AUTO) 0.1 10^3/uL (0.0-0.2); ABSOLUTE EOSINOPHILS # (AUTO) 0.1 10^3/uL (0.0-0.6); ABSOLUTE LYMPHOCYTES (AUTO) 2.2 10^3/uL (0.5-4.7); ABSOLUTE MONOCYTES (AUTO) 0.5 10^3/uL (0.1-1.4); ABSOLUTE NEUT (AUTO) 6.8 10^3/uL (1.7-8.2); BASOPHILS % (AUTO) 0.6 % (0-2); EOSINOPHILS % (AUTO) 1.5 % (0-6); LYMPHOCYTES % (AUTO) 22.7 % (13-45); MEAN CORPUSCULAR HEMOGLOBIN 29.1 pg (27.0-33.4); MEAN CORPUSCULAR HGB CONC 33.4 g/dL (32.0-36.0); MEAN CORPUSCULAR VOLUME 87 fl (80-97); MONOCYTES % (AUTO) 4.7 % (3-13); RED BLOOD COUNT 4.49 10^6/uL (3.72-5.28); RED CELL DISTRIBUTION WIDTH 15.9 % (11.5-14.0); SEGMENTED NEUTROPHILS % (AUTO) 70.5 % (42-78); WHITE BLOOD COUNT 9.7 10^3/uL (4.0-10.5)
[2016-07-02 16:01] LABS: ANION GAP 14 (5-19); BLOOD UREA NITROGEN 10 mg/dL (7-20); CARBON DIOXIDE 26 mmol/L (22-30); CHLORIDE 101 mmol/L (98-107); CREATININE RESULT 0.58 mg/dL (0.52-1.25); GLUCOSE 100 mg/dL (75-110); POTASSIUM 4.1 mmol/L (3.6-5.0); SODIUM 140.9 mmol/L (137-145)
--- NOTE | 2016-07-02 17:43 | PDOC PROGRESS REPORT ---
Subjective Progress Note for:: 07/02/16 Subjective:: Feels better. Minimal abdominal pain. No diarrhea today. No chills today. Physical Exam Vital Signs: Temp Pulse Resp BP Pulse Ox 98.3 F 104 H 20 107/70 99 07/02/16 12:50 07/02/16 12:50 07/02/16 12:50 07/02/16 12:50 07/02/16 12:50 Intake & Output 07/01/16 07/02/16 07/03/16 06:59 06:59 06:59 Weight 95.4 kg General appearance: PRESENT: no acute distress GI/Abdominal exam: PRESENT: other - Soft, nondistended, very mild lower abdominal tenderness no peritoneal signs. Drain was pulled. Scant amount of the seropurulent drainage from the exit site. Results Laboratory Results: 07/02/16 15:30 07/02/16 15:30 07/02/16 07/02/16 07/02/16 13:50 13:50 15:30 WBC Cancelled 9.7 RBC Cancelled 4.49 Hgb Cancelled 13.0 Hct Cancelled 39.0 MCV Cancelled 87 MCH Cancelled 29.1 MCHC Cancelled 33.4 RDW Cancelled 15.9 H Plt Count Cancelled 259 Seg Neutrophils % Cancelled 70.5 Lymphocytes % Cancelled 22.7 Monocytes % Cancelled 4.7 Eosinophils % Cancelled 1.5 Basophils % Cancelled 0.6 Absolute Neutrophils Cancelled 6.8 Absolute Lymphocytes Cancelled 2.2 Absolute Monocytes Cancelled 0.5 Absolute Eosinophils Cancelled 0.1 Absolute Basophils Cancelled 0.1 Sodium Cancelled Potassium Cancelled Chloride Cancelled Carbon Dioxide Cancelled Anion Gap Cancelled BUN Cancelled Creatinine Cancelled Est GFR ( Amer) Cancelled Est GFR (Non-Af Amer) Cancelled Glucose Cancelled Calcium Cancelled 07/02/16 15:30 WBC RBC Hgb Hct MCV MCH MCHC RDW Plt Count Seg Neutrophils % Lymphocytes % Monocytes % Eosinophils % Basophils % Absolute Neutrophils Absolute Lymphocytes Absolute Monocytes Absolute Eosinophils Absolute Basophils Sodium 140.9 Potassium 4.1 Chloride 101 Carbon Dioxide 26 Anion Gap 14 BUN 10 Creatinine 0.58 Est GFR ( Amer) > 60 Est GFR (Non-Af Amer) > 60 Glucose 100 Calcium 10.0 Impressions: Abdomen/Pelvis CT 07/02/16 00:00 IMPRESSION: 1. Residual versus recurrent sigmoid diverticulitis. Small gas fluid collection to right of midline has decreased in size. 2. Percutaneous pelvic drainage catheter tip is now in the subcutaneous tissues. Assessment & Plan - Diagnosis (2) Diverticulitis large intestine Qualifiers: Diverticulitis complication: with perforation and abscess Is this a current diagnosis for this admission?: YesPlan: Patient looks better than this morning. CT scan demonstrates the residual fluid collection that has decreased from previous scan. Inflammatory changes are seen. The drain was in the subcutaneous tissue therefore was pulled. Will await stool study to make sure she does not have C. difficile. She does not have C. difficileshe feels okay will consider discharging the patient home with the by mouth antibiotics while awaiting her surgery. If she has any fever or worsened symptoms will plan repeat percutaneous drainage of her pelvic fluid collection.
[2016-07-02] MEDS: METRONIDAZOLE 500 MG TABLET PO SCH (21:15)
[2016-07-02] MEDS: NORMAL SALINE 1000 ML 1,000 ML IV PRN (21:28)
[2016-07-03] MEDS: METRONIDAZOLE 500 MG TABLET PO SCH ×2 (00:03→05:54)
[2016-07-03] MEDS ORDERED: MORPHINE SULFATE 10 MG/ML INJ ONE (04:44)
[2016-07-03] MEDS ORDERED: MORPHINE SULFATE 10 MG/ML INJ IV PRN (08:38)
[2016-07-03] MEDS: NORMAL SALINE 1000 ML 1,000 ML IV PRN (08:51)
--- NOTE | 2016-07-03 10:27 | PDOC PROGRESS REPORT ---
Subjective Progress Note for:: 07/03/16 Subjective:: Minimal abdominal discomfort. Having diarrhea. Physical Exam Vital Signs: Temp Pulse Resp BP Pulse Ox 97.4 F 100 20 136/68 H 100 07/03/16 08:18 07/03/16 08:18 07/03/16 08:18 07/03/16 08:18 07/03/16 08:18 Intake & Output 07/02/16 07/03/16 07/04/16 06:59 06:59 06:59 Intake Total 0 Output Total 101 Balance -101 Weight 95.4 kg General appearance: PRESENT: no acute distress GI/Abdominal exam: PRESENT: other - Soft, nondistended, minimal abdominal tenderness. Results Laboratory Results: 07/02/16 15:30 07/02/16 15:30 07/02/16 07/02/16 07/02/16 13:50 13:50 15:30 WBC Cancelled 9.7 RBC Cancelled 4.49 Hgb Cancelled 13.0 Hct Cancelled 39.0 MCV Cancelled 87 MCH Cancelled 29.1 MCHC Cancelled 33.4 RDW Cancelled 15.9 H Plt Count Cancelled 259 Seg Neutrophils % Cancelled 70.5 Lymphocytes % Cancelled 22.7 Monocytes % Cancelled 4.7 Eosinophils % Cancelled 1.5 Basophils % Cancelled 0.6 Absolute Neutrophils Cancelled 6.8 Absolute Lymphocytes Cancelled 2.2 Absolute Monocytes Cancelled 0.5 Absolute Eosinophils Cancelled 0.1 Absolute Basophils Cancelled 0.1 Sodium Cancelled Potassium Cancelled Chloride Cancelled Carbon Dioxide Cancelled Anion Gap Cancelled BUN Cancelled Creatinine Cancelled Est GFR ( Amer) Cancelled Est GFR (Non-Af Amer) Cancelled Glucose Cancelled Calcium Cancelled 07/02/16 15:30 WBC RBC Hgb Hct MCV MCH MCHC RDW Plt Count Seg Neutrophils % Lymphocytes % Monocytes % Eosinophils % Basophils % Absolute Neutrophils Absolute Lymphocytes Absolute Monocytes Absolute Eosinophils Absolute Basophils Sodium 140.9 Potassium 4.1 Chloride 101 Carbon Dioxide 26 Anion Gap 14 BUN 10 Creatinine 0.58 Est GFR ( Amer) > 60 Est GFR (Non-Af Amer) > 60 Glucose 100 Calcium 10.0 Impressions: Abdomen/Pelvis CT 07/02/16 00:00 IMPRESSION: 1. Residual versus recurrent sigmoid diverticulitis. Small gas fluid collection to right of midline has decreased in size. 2. Percutaneous pelvic drainage catheter tip is now in the subcutaneous tissues. Assessment & Plan - Diagnosis (2) Diverticulitis large intestine Qualifiers: Diverticulitis complication: with perforation and abscess Is this a current diagnosis for this admission?: Yes (3) C. difficile colitis Is this a current diagnosis for this admission?: YesPlan: Patient with no focal tenderness in the lower abdomen and the decreased size of fluid collection in the pelvis with a normal white blood cell count and the no fever and and no chills. Patient with diarrhea with the C. difficile positive. Will place the patient on by mouth Flagyl only while awaiting surgery in a couple weeks. Will discharge the patient home. Encourage fluid intake.
--- NOTE | 2016-07-03 10:48 | DISCHARGE SUMMARY E ---
Discharge Summary NAME: OFELIA SEGURA : 1975 AGE: 40Y ADMITTED: 07/02/2016 DISCHARGED: 07/03/2016 DISCHARGE DIAGNOSES: 1. C. difficile colitis. 2. Diverticulitis of the sigmoid colon. HOSPITAL COURSE: The patient was admitted. CBC demonstrated normal white blood cell count. Abdominal pelvic CT scan was performed. It demonstrated residual evidence of diverticulitis but her pelvic fluid collection was decreased in size. Her drain was displaced into the subcutaneous tissue, therefore, the drain was removed. Patient had no fever and no chills and she was feeling better after hydration. She was not focally tender in the lower abdomen at the time of discharge. Her C. diff study was positive, however. In light of her C. diff colitis and the above mentioned findings, I decided not to place her back on antibiotics for her diverticulitis. However, I will treat her with Flagyl 500 mg p.o. q.i.d. in the time awaiting her surgery in 2 weeks. She is now being discharged to home in fair condition. She will follow up with me next week. She is to call me for increased pain or fever. She is encouraged to stay well hydrated at home and follow a low residue diet. DICTATING PHYSICIAN: MARIA ESTHER PRICE M.D. [id number] YOHANY#: [id number] ID: [id number] JOB#: [id number] ACCT: [id number] cc:MARIA ESTHER PRICE M.D. >
[2016-07-03 12:55] VITALS: BP 107/70
== END 2016-07-03 15:24 | disposition home or self-care (01) | DRG 372 ==
LOC: 4N 10:19
PROVIDERS: ADMIT Surgery; ATTEND Surgery
DX: A04.7 Enterocolitis due to Clostridium difficile (principal); K57.20 Diverticulitis of large intestine with perforation and abscess without bleeding; E11.9 Type 2 diabetes mellitus without complications; F41.9 Anxiety disorder, unspecified; E66.9 Obesity, unspecified; Z68.38 Body mass index [BMI] 38.0-38.9, adult
CPT/HCPCS: 36415; 74177; 80048; 85025; 87493; J2270; J7030

== ENCOUNTER 2016-07-16 07:44 | Day surgery (SDC) | payer BC ==
[~2016-07-16 07:44] MED LIST: DIPHENHYDRAMINE HCL 50 MG/ML VIAL ONE; EPINEPHRINE INJ 1 MG/10 ML DISP.SYRIN ONE; FLUMAZENIL INJ 0.5 MG/5 ML VIAL IV ONE; GLUCAGON,HUMAN RECOMB 1 MG INJ ONE; NALOXONE HCL INJ/PF 0.4 MG/1 ML SDV ONE; ONDANSETRON HCL INJ/PF 4 MG/2 ML SDV ONE; PROMETHAZINE HCL INJ 25 MG/1 ML VIAL ONE
[2016-07-16] MEDS: MIDAZOLAM 2 MG/2 ML INJ ONE ×3 (08:08→08:16)
[2016-07-16] MEDS: FENTANYL CITRATE INJ/PF 100 MCG/2 ML AMPUL ONE ×4 (08:10→08:15)
--- NOTE | 2016-07-16 08:37 | Operative Report ---
Operative Report DATE OF SURGERY: 07/16/16 Operative Report: The risks, benefits and alternatives of the procedure including risks of bleeding, perforation requiring surgery are explained to the patient in detail and informed consent is obtained. Patient is taken back to the endoscopy suite. She is placed in a left, lateral decubital position. Timeout was called. An Olympus videoscope was inserted into the patient's rectum. The scope was then gradually advanced all the way to the cecum. The cecum was identified by the usual anatomical landmarks including the ileocecal valve as well as the appendiceal office. Photo documentations obtained. Prep is good. Some irrigation had to be used. The scope was then sequentially pulled back via the various segments of the colon including the ascending colon, hepatic flexure, transverse colon, descending colon, and finally into the rectosigmoid portions of the colon. Retroflexion maneuver performed. PREOPERATIVE DIAGNOSIS: Diverticulitis, previous perforation with abscess formation. Previous drain have been placed by surgery. Patient is scheduled for resection. Colonoscopy to evaluate sigmoid area. POSTOPERATIVE DIAGNOSIS: Diverticulosis is noted in the sigmoid. The area of the sigmoid is mild to moderately inflamed. It is patent. No stricturing was seen. No abnormal lesions are noted. Biopsies are obtained OPERATION: Colonoscopy with biopsy SURGEON: LATANYA TOUSSAINT ANESTHESIA: Moderate Sedation - 6 mg grams of Versed, 125 g of fentanyl. TISSUE REMOVED OR ALTERED: 2 small specimens obtained in the area of the sigmoid. COMPLICATIONS: None. ESTIMATED BLOOD LOSS: none. INTRAOPERATIVE FINDINGS: As described above. No other polyps, AVMs, obstructive lesions are noted. Mild internal hemorrhoids. PROCEDURE: Patient tolerated the procedure well. No immediate postprocedure complications are noted. Patient is discharged in good condition. She is scheduled to keep her appointment with Dr. Blackwood tomorrow. Discharge date 07/16/2016. Discharge diet clear liquids, she will need to call the surgical office in [place] to determine if she should be nothing by mouth Charge activity: Regular. She has a follow-up if surgery is planned She is instructed to call the office or proceed to the emergency room if there are any further problems or questions. We'll await on biopsies. Copies of this report along with photos are being provided to Dr Blackwood's office
[2016-07-16 09:22] VITALS: BP 111/56
== END 2016-07-16 09:40 | disposition home or self-care (01) ==
LOC: END 07:44
PROVIDERS: ATTEND Internal Medicine Gastroenterology
DX: K57.30 Diverticulosis of large intestine without perforation or abscess without bleeding (principal); K64.8 Other hemorrhoids; E66.9 Obesity, unspecified; Z79.899 Other long term (current) drug therapy
CPT/HCPCS: 45380; 88305 ×2; J2250; J3010; J0171; J1200; J1610; J2310; J2405; J2550; J3490

== ENCOUNTER 2016-12-05 05:14 | Day surgery (SDC) | payer BC ==
[2016-12-03 12:12] LABS: APPEARANCE,URINE CLEAR; BILIRUBIN,URINE NEGATIVE (NEGATIVE); GLUCOSE, URINE NEGATIVE (NEGATIVE); KETONES,URINE NEGATIVE (NEGATIVE); LEUKOCYTE ESTERASE,URINE SMALL (NEGATIVE); NITRITE,URINE NEGATIVE (NEGATIVE); PROTEIN,URINE NEGATIVE (NEGATIVE); URINE SPECIFIC GRAVITY 1.004; UROBILINOGEN,URINE NEGATIVE mg/dL (<2.0)
[2016-12-03 12:23] LABS: HEMATOCRIT 43.4 % (36.0-47.0); HEMOGLOBIN 14.2 g/dL (12.0-15.5); HGB HCT DIFFERENCE -0.8; MEAN CORPUSCULAR HEMOGLOBIN 28.9 pg (27.0-33.4); MEAN CORPUSCULAR HGB CONC 32.8 g/dL (32.0-36.0); MEAN CORPUSCULAR VOLUME 88 fl (80-97); RED BLOOD COUNT 4.92 10^6/uL (3.72-5.28); RED CELL DISTRIBUTION WIDTH 14.2 % (11.5-14.0); WHITE BLOOD COUNT 6.2 10^3/uL (4.0-10.5)
--- NOTE | 2016-12-03 12:24 | RADIOLOGY REPORT (SQ) ---
EXAM DESCRIPTION: CHEST PA/LATERAL COMPLETED DATE/TIME: 12/03/2016 12:16 pm REASON FOR STUDY: PRE OP COMPARISON: 06/04/2016 EXAM PARAMETERS: NUMBER OF VIEWS: two views TECHNIQUE: Digital Frontal and Lateral radiographic views of the chest acquired. RADIATION DOSE: NA LIMITATIONS: none FINDINGS: LUNGS AND PLEURA: No opacities, masses or pneumothorax. No pleural effusion. MEDIASTINUM AND HILAR STRUCTURES: No masses or contour abnormalities. HEART AND VASCULAR STRUCTURES: Heart normal size. No evidence for failure. BONES: No acute findings. HARDWARE: None in the chest. OTHER: No other significant finding. IMPRESSION: NO SIGNIFICANT RADIOGRAPHIC FINDING IN THE CHEST. TECHNICAL DOCUMENTATION: JOB ID: [id number] [employer]- All Rights Reserved
[2016-12-03 12:44] LABS: ANION GAP 11 (5-19); BLOOD UREA NITROGEN 13 mg/dL (7-20); CALCIUM 9.4 mg/dL (8.4-10.2); CARBON DIOXIDE 29 mmol/L (22-30); CHLORIDE 101 mmol/L (98-107); CREATININE RESULT 0.68 mg/dL (0.52-1.25); GLUCOSE 98 mg/dL (75-110); POTASSIUM 4.1 mmol/L (3.6-5.0)
--- NOTE | 2016-12-03 13:10 | EKG REPORT ---
SEVERITY:- BORDERLINE ECG - SINUS RHYTHM BORDERLINE INFERIOR Q WAVES : Confirmed by: Mendel Jones MD 03-Dec-2016 13:09:16
[~2016-12-05 05:14] MED LIST changes: +CEFAZOLIN 1 GM/D5W RTU 1 GM/50 ML RTUPB IV PRN; -DIPHENHYDRAMINE HCL 50 MG/ML VIAL ONE; -EPINEPHRINE INJ 1 MG/10 ML DISP.SYRIN ONE; -FLUMAZENIL INJ 0.5 MG/5 ML VIAL IV ONE; -GLUCAGON,HUMAN RECOMB 1 MG INJ ONE; +LACTATED RINGERS 1000 ML IV PRN; +LIDOCAINE 0.5% INJ-PF (5 MG/ML) 50 ML SDV SUBCUT PRN; -NALOXONE HCL INJ/PF 0.4 MG/1 ML SDV ONE; -ONDANSETRON HCL INJ/PF 4 MG/2 ML SDV ONE; -PROMETHAZINE HCL INJ 25 MG/1 ML VIAL ONE
[2016-12-05] MEDS ORDERED: DEXAMETHASONE SOD PHOSPHATE INJ 4 MG/1 ML VIAL ONE (06:59)
[2016-12-05] MEDS ORDERED: MIDAZOLAM 2 MG/2 ML INJ ONE (06:59)
[2016-12-05] MEDS ORDERED: ONDANSETRON HCL INJ/PF 4 MG/2 ML SDV ONE (06:59)
[2016-12-05] MEDS ORDERED: PROPOFOL INJ 200 MG/20 ML VIAL IV ONE (06:59)
[2016-12-05] MEDS ORDERED: HYDROMORPHONE HCL INJ/PF 2 MG/ML AMPULE ONE (07:00)
[2016-12-05] MEDS ORDERED: SCOPOLAMINE HYDROBROMIDE 1.5 MG PATCH.TD72 ONE (07:09)
[2016-12-05] MEDS ORDERED: DIPHENHYDRAMINE HCL 50 MG/ML VIAL IV PRN (07:46)
[2016-12-05] MEDS ORDERED: FENTANYL CITRATE INJ/PF 100 MCG/2 ML AMPUL IV PRN ×3 (07:46)
[2016-12-05] MEDS ORDERED: DIPHENHYDRAMINE HCL 50 MG/ML VIAL ONE (08:58)
--- NOTE | 2016-12-05 08:59 | OPERATIVE REPORT E ---
Operative Report NAME: OFELIA SEGURA : 1975 AGE: 41Y DATE OF SURGERY: 12/05/2016 ROOM: PREOPERATIVE DIAGNOSES: 1. ENDOMETRIAL LESION. 2. ABNORMAL UTERINE BLEEDING UNRESPONSIVE TO USUAL OUTPATIENT MANAGEMENT. 3. STENOTIC CERVIX. POSTOPERATIVE DIAGNOSES: 1. ENDOMETRIAL LESION. 2. ABNORMAL UTERINE BLEEDING UNRESPONSIVE TO USUAL OUTPATIENT MANAGEMENT. 3. STENOTIC CERVIX. 4. INABILITY TO LOCATE CERVICAL OS WAS NOTED. OPERATION: 1. Vaginoscopy. 2. Cervicoscopy. 3. Cervical biopsy. ESTIMATED BLOOD LOSS: 10 to 25 mL. FINDINGS: Cervical nub at the apex of the vagina. Scarified cervix. Multiple nooks and crannies were located and attempted to probe with small lacrimal duct probes that were available. Complete cervical and vaginal observation was performed with the operative hysteroscope under water and dry opportunities. Cervical biopsies performed at the conclusion of this aspect of the procedure of the most productive appearing area of the *------*. SURGEON: SELENA COATES M.D. INDICATIONS FOR PROCEDURE: The patient had some abnormal uterine bleeding and the appearance of what appeared to be a submucous lesion present in the endometrial cavity. She had undergone treatment for some type of cervical abnormality in the past. The usual risks of bleeding, infection, anesthesia, damage to tissues were discussed with the patient who understood. PROCEDURE: The patient was taken to the operating room and placed in the modified lithotomy position and underwent adequate MAC anesthesia *------* surgical time-out had been performed. Examination under anesthesia performed and multiple vaginal speculums were used to locate the cervix proper. Cervix was located with a single-tooth tenaculum, brought in as best as possible into the operative field. Probing and sounding ensued and no os was identified. Hysteroscope was instituted and using under water as well as dry observation of the area and probing and no os was identified. The bladder was drained during this aspect of the procedure to facilitate any further observations and no os was located. Cervical biopsies x3 were performed in the area of most concern. I elected to proceed at this point to wake her up and consideration of outpatient procedure, perhaps a laparotomy for further delineation of her uterine tissues. DICTATING PHYSICIAN: SELENA COATES M.D. [id number] PHY#: [id number] ID: [id number] JOB#: [id number] ACCT: [id number] cc:SELENA COATES M.D. >
[2016-12-05] MEDS ORDERED: MORPHINE INJ 4 MG DOSE (EDIT ROUTE) INJ PRN (09:00)
[2016-12-05] MEDS ORDERED: PROMETHAZINE HCL INJ 25 MG/1 ML VIAL IM PRN (09:00)
[2016-12-05] MEDS ORDERED: OXYCODONE-ACETAMINOPHEN 5-325 MG TABLET PO PRN (09:00)
[2016-12-05 11:40] VITALS: BP 133/85
[2016-12-05] MEDS ORDERED: IBUPROFEN 800 MG TABLET PO SCH (14:00)
== END 2016-12-05 10:40 | disposition home or self-care (01) ==
LOC: OROUT 05:14
PROVIDERS: ATTEND Specialist
PROC: 0UBC8ZX Excision of Cervix, Via Natural or Artificial Opening Endoscopic, Diagnostic (ICD-10-PCS; 2016-12-05)
PROC: 0UBG8ZX Excision of Vagina, Via Natural or Artificial Opening Endoscopic, Diagnostic (ICD-10-PCS; principal; 2016-12-05 07:15)
DX: N72 Inflammatory disease of cervix uteri (principal); N93.9 Abnormal uterine and vaginal bleeding, unspecified; N88.2 Stricture and stenosis of cervix uteri; I10 Essential (primary) hypertension; E66.9 Obesity, unspecified; Z68.41 Body mass index [BMI] 40.0-44.9, adult
CPT/HCPCS: 93005; 86900; 86901; 36415; 86850; 85027; 81025; 80048; 81001; 88305 ×2; 71020; 93010; 57421; J2250; J0690; J1100; J1200; J1170; J2405; J2704; 952

== ENCOUNTER 2017-09-14 11:17 | Emergency (ER) | payer BC ==
--- NOTE | 2017-09-14 11:51 | ER Document Report ---
ED Medical Screen (RME) - General Chief Complaint: Abdominal Pain Stated Complaint: LOWER ABDOMINAL PAIN Time Seen by Provider: 09/14/17 11:50 Notes: Patient states that she was having a normal day when she leaned back in a chair to stretch. She states that she had sudden intense pain in the left lower quadrant of her abdomen that made her pass out. She states she has had a previous partial colectomy. She also has polycystic ovarian disease. She states that she had a menstrual cycle one time at the age of 13 and then never had another menstrual cycle until she was 38 years old. States she has never been . TRAVEL OUTSIDE OF THE [place] IN LAST 30 DAYS: No - Related Data Allergies/Adverse Reactions: prednisone [Prednisone] Adverse Reaction (Verified 12/03/16 11:21) Past Medical History - Social History Chew tobacco use (# tins/day): No Frequency of alcohol use: None Drug Abuse: None Family history: Reviewed & Not Pertinent - Past Medical History Cardiac Medical History: Denies: Hx Coronary Artery Disease, Hx Heart Attack, Hx Hypertension Pulmonary Medical History: Denies: Hx Asthma, Hx Bronchitis, Hx COPD, Hx Pneumonia Neurological Medical History: Denies: Hx Cerebrovascular Accident, Hx Seizures Endocrine Medical History: Reports: Hx Diabetes Mellitus Type 2 - pre diabetic Renal/ Medical History: Denies: Hx Peritoneal Dialysis GI Medical History: Reports: Hx Diverticulitis Musculoskeltal Medical History: Denies Hx Arthritis Psychiatric Medical History: Reports: Hx Depression Past Surgical History: Reports: Hx Cholecystectomy, Other - Sinus surgery 3. Ear tubes.. Denies: Hx Hysterectomy - Immunizations Hx Diphtheria, Pertussis, Tetanus Vaccination: No Physical Exam - Vital signs Vitals: Pulse Resp BP Pulse Ox 89 20 109/58 L 100 09/14/17 11:23 09/14/17 11:23 09/14/17 11:23 09/14/17 11:23 Course - Vital Signs Vital signs: Temp Pulse Resp BP Pulse Ox 97.5 F 89 16 109/58 L 100 09/14/17 11:25 09/14/17 11:23 09/14/17 11:27 09/14/17 11:23 09/14/17 11:23
[2017-09-14 12:51] LABS: APPEARANCE,URINE SLIGHTLY-CLOUDY; BILIRUBIN,URINE NEGATIVE (NEGATIVE); COLOR,URINE YELLOW; GLUCOSE, URINE NEGATIVE (NEGATIVE); KETONES,URINE NEGATIVE (NEGATIVE); LEUKOCYTE ESTERASE,URINE NEGATIVE (NEGATIVE); NITRITE,URINE NEGATIVE (NEGATIVE); PROTEIN,URINE 30 mg/dL (NEGATIVE); URINE SPECIFIC GRAVITY 1.024; UROBILINOGEN,URINE NEGATIVE mg/dL (<2.0)
--- NOTE | 2017-09-14 13:22 | EKG REPORT ---
SEVERITY:- NORMAL ECG - SINUS RHYTHM : Confirmed by: Mendel Jones MD 14-Sep-2017 13:21:26
[2017-09-14 15:06] LABS: ABSOLUTE EOSINOPHILS # (AUTO) 0.1 10^3/uL (0.0-0.6); ABSOLUTE LYMPHOCYTES (AUTO) 2.1 10^3/uL (0.5-4.7); ABSOLUTE MONOCYTES (AUTO) 0.3 10^3/uL (0.1-1.4); ABSOLUTE NEUT (AUTO) 6.8 10^3/uL (1.7-8.2); BASOPHILS % (AUTO) 0.5 % (0-2); EOSINOPHILS % (AUTO) 0.7 % (0-6); HEMATOCRIT 44.7 % (36.0-47.0); HEMOGLOBIN 15.5 g/dL (12.0-15.5); LYMPHOCYTES % (AUTO) 22.2 % (13-45); MEAN CORPUSCULAR HEMOGLOBIN 30.3 pg (27.0-33.4); MEAN CORPUSCULAR HGB CONC 34.6 g/dL (32.0-36.0); MEAN CORPUSCULAR VOLUME 88 fl (80-97); MONOCYTES % (AUTO) 3.6 % (3-13); PLATELET COUNT 201 10^3/uL (150-450); RED BLOOD COUNT 5.11 10^6/uL (3.72-5.28); RED CELL DISTRIBUTION WIDTH 12.9 % (11.5-14.0); TOTAL CELLS COUNTED % (AUTO) 100 %; WHITE BLOOD COUNT 9.4 10^3/uL (4.0-10.5)
[2017-09-14 15:25] LABS: ALANINE AMINOTRANSFERASE 49 U/L (9-52); ALBUMIN 4.6 g/dL (3.5-5.0); ALKALINE PHOSPHATASE 68 U/L (38-126); ANION GAP 14 (5-19); ASPARTATE AMINO TRANSFERASE 34 U/L (14-36); BILIRUBIN,DIRECT 0.3 mg/dL (0.0-0.4); BILIRUBIN,TOTAL 0.7 mg/dL (0.2-1.3); BLOOD UREA NITROGEN 14 mg/dL (7-20); CALCIUM 9.7 mg/dL (8.4-10.2); CARBON DIOXIDE 28 mmol/L (22-30); CHLORIDE 101 mmol/L (98-107); GLUCOSE 140 mg/dL (75-110); POTASSIUM 4.4 mmol/L (3.6-5.0); SODIUM 142.7 mmol/L (137-145); TOTAL PROTEIN 7.9 g/dL (6.3-8.2)
--- NOTE | 2017-09-14 18:54 | RADIOLOGY REPORT (SQ) ---
EXAM DESCRIPTION: CT ABD/PELVIS WITH IV ORAL COMPLETED DATE/TIME: 09/14/2017 6:26 pm REASON FOR STUDY: Lower midline abdominal pain COMPARISON: 07/02/2016 TECHNIQUE: CT scan of the abdomen and pelvis performed using helical scanning technique with dynamic intravenous contrast injection. No oral contrast. Images reviewed with lung, soft tissue, and bone windows. Reconstructed coronal and sagittal MPR images reviewed. Delayed images for evaluation of the urinary system also acquired. All images stored on PACS. All CT scanners at this facility use dose modulation, iterative reconstruction, and/or weight based d osing when appropriate to reduce radiation dose to as low as reasonably achievable (ALARA). [facility]: Dose Right [facility]: CareDose [facility]: Dose Right [facility]: Teradose 4D [facility]: PrimeraDx ([employer]) CONTRAST TYPE AND DOSE: contrast/concentration: Isovue 370.00 mg/ml; Total Contrast Delivered: 100.0 ml; Total Saline Delivered: 50.0 ml RENAL FUNCTION: BUN 14 creatinine 0.72 RADIATION DOSE: CT Rad equipment meets quality standard of care and radiation dose reduction techniq ues were employed. CTDIvol: 20.8 - 21.1 mGy. DLP: 2483 mGy-cm.. LIMITATIONS: None. FINDINGS: LOWER CHEST: No significant findings. No nodules or infiltrates. LIVER: Normal size. No masses. No dilated ducts. SPLEEN: Normal size. No focal lesions. PANCREAS: No masses. No significant calcifications. No adjacent inflammation or peripancreatic fluid collections. Pancreatic duct not dilated. GALLBLADDER: No identified stones by CT criteria. No inflammatory changes to suggest cholecystitis. ADRENAL GLANDS: No significant masses or asymmetry. RIGHT KIDNEY AND URETER: No solid masses. No significant calcifications. No hydronephrosis or hyd roureter. LEFT KIDNEY AND URETER: No solid masses. No significant calcifications. No hydronephrosis or hydr oureter. AORTA AND VESSELS: No aneurysm. No dissection. Renal arteries, SMA, celiac without stenosis. RETROPERITONEUM: No retroperitoneal adenopathy, hemorrhage or masses. BOWEL AND PERITONEAL CAVITY: No masses or inflammatory changes. No free fluid or peritoneal masses. APPENDIX: Normal. PELVIS: No mass. No free fluid. Normal bladder. ABDOMINAL WALL: A very small umbilical hernia contains only fat. BONES: No significant abnormality. OTHER: No other significant finding. IMPRESSION: 1. There are no acute findings in the abdomen or pelvis to explain the patient's pain. 2. There is a very small umbilical hernia. TECHNICAL DOCUMENTATION: JOB ID: [id number] Quality ID # [id number]: Final reports with documentation of one or more dose reduction techniques (e.g., Au tomated exposure control, adjustment of the mA and/or kV according to patient size, use of iterative reconstruction technique) 2010 [employer]- All Rights Reserved Reading location - IP/workstation name: [email or web address]
[2017-09-14] MEDS ORDERED: ONDANSETRON HCL INJ/PF 4 MG/2 ML SDV IV ONE (18:57)
[2017-09-14] MEDS ORDERED: ONDANSETRON HCL INJ/PF 4 MG/2 ML SDV ONE ×2 (18:59→19:00)
--- NOTE | 2017-09-14 19:20 | ER Document Report ---
ED GI/ - General Chief Complaint: Abdominal Pain Stated Complaint: LOWER ABDOMINAL PAIN Time Seen by Provider: 09/14/17 11:50 Notes: Patient says she awakened this morning feeling fine. Goes to a weight loss clinic and went there this morning and while there, sitting through a meeting, she suddenly developed severe left lower quadrant pain going across the lower abdomen to the right lower quadrant region. It was associated with severe nausea, but she did not vomit. She said that she actually passed out and became very sweaty and had her head on the table. The pain seemed to subside somewhat after about 30 minutes and the pain localized in a small area just below the umbilicus. She does not feel any swelling in that area. Has not been sick recently. No UTI symptoms. No fever, but did have the mentioned sweats. Patient has never been . She started have her menstrual cycle when she was 13 years old and it stopped almost immediately and did not resume until she was 38 years of age. She is on Provera to regulate her cycles. She has been diagnosed with PCOS. Has had her gallbladder removed. Last year, patient was diagnosed with diverticulitis and had 10 or 12 inches of her bowel removed. Patient is overweight and trying to lose weight. She has some hormonal changes with facial hair production. And has been prescribed Spironolactone for this condition. No other significant past medical history. TRAVEL OUTSIDE OF THE [place] IN LAST 30 DAYS: No - Related Data Allergies/Adverse Reactions: prednisone [Prednisone] Adverse Reaction (Verified 12/03/16 11:21) Past Medical History - Social History Smoking Status: Never Smoker Chew tobacco use (# tins/day): No Frequency of alcohol use: None Drug Abuse: None Family History: Reviewed & Not Pertinent, CAD - Paternal grandmother with coronary artery disease., DM Patient has suicidal ideation: No Patient has homicidal ideation: No - Past Medical History Cardiac Medical History: Denies: Hx Coronary Artery Disease, Hx Heart Attack, Hx Hypertension Pulmonary Medical History: Denies: Hx Asthma, Hx Bronchitis, Hx COPD, Hx Pneumonia Neurological Medical History: Denies: Hx Cerebrovascular Accident, Hx Seizures Endocrine Medical History: Reports: Hx Diabetes Mellitus Type 2 - pre diabetic GI Medical History: Reports: Hx Diverticulitis Musculoskeltal Medical History: Denies Hx Arthritis Psychiatric Medical History: Reports: Hx Depression Past Surgical History: Reports: Hx Cholecystectomy, Other - Sinus surgery 3. Ear tubes.. Denies: Hx Hysterectomy - Immunizations Hx Diphtheria, Pertussis, Tetanus Vaccination: No Review of Systems - Review of Systems Notes: REVIEW OF SYSTEMS: CONSTITUTIONAL : Denies fever. EENT: Denies eye, ear, nose or mouth or throat pain or other symptoms. CARDIOVASCULAR: Denies chest pain. RESPIRATORY: Denies cough, chest congestion, or shortness of breath. GASTROINTESTINAL: See HPI.. GENITOURINARY: Denies difficulty or painful urinating, urinary frequency, blood in urine. MUSCULOSKELETAL: Denies back or neck pain. Denies joint pain or swelling. SKIN: Denies rash or skin lesions. NEUROLOGICAL: Denies LOC or altered mental status. Denies headache. Denies sensory loss or motor deficits. ALL OTHER SYSTEMS REVIEWED AND NEGATIVE. Physical Exam - Vital signs Vitals: Pulse Resp BP Pulse Ox 89 20 109/58 L 100 09/14/17 11:23 09/14/17 11:23 09/14/17 11:09/14/17 11:23 Interpretation: Normal - Notes Notes: PHYSICAL EXAMINATION: GENERAL: Well-appearing, in no acute distress. Anxious. Vital signs are normal. HEAD: Atraumatic, normocephalic. EYES: Pupils equal round and reactive to light, extraocular movements intact. ENT: oropharynx clear without exudates. Moist mucous membranes. NECK: Normal range of motion, supple. LUNGS: Breath sounds clear and equal bilaterally. HEART: Regular rate and rhythm without murmurs. ABDOMEN: Obese, soft, not really tender except for very minimal amount of tenderness just below the umbilicus. No bulge or fullness noted like a herniated [place]. No exquisite tenderness to press or mesh in that area. No guarding or rebound. No masses. BACK: No tenderness throughout entire back. EXTREMITIES: Normal range of motion without pain. NEUROLOGICAL: Normal speech, normal gait. Normal sensory, motor, and reflex exams. Awake, alert, and oriented x3. Cranial nerves normal. PSYCH: Normal mood, normal affect. SKIN: Warm, dry, no rashes. Course - Vital Signs Vital signs: Temp Pulse Resp BP Pulse Ox 97.5 F 89 16 109/58 L 100 09/14/17 11:25 09/14/17 11:23 09/14/17 11:27 09/14/17 11:09/14/17 11:23 - Laboratory Result Diagrams: 09/14/17 14:47 09/14/17 14:47 Laboratory results interpreted by me: 09/14/17 09/14/17 12:24 14:47 Glucose 140 H Urine Protein 30 H - Diagnostic Test Radiology reviewed: Image reviewed, Reports reviewed - CT scan of the abdomen and pelvis showed a small umbilical hernia with some fat in it, but no bowel in the hernia. Otherwise the veins on the CT scans of the abdomen and pelvis. Discharge - Discharge Clinical Impression: Abdominal pain, Umbilical hernia, Umbilical hernia without obstruction and without gangrene Condition: Stable Disposition: HOME, SELF-CARE Additional Instructions: ABDOMINAL PAIN: There are many causes of abdominal pain. Pain can mean a serious problem requiring surgery (such as appendicitis). It can also be an innocent problem that goes away on its own (such as a viral infection). Often, time must pass to determine the cause of pain. The physician does not feel that hospitalization is necessary, at present. Things may change within the next 24 hours. Call the doctor or come back for re- examination if any problems occur, such as: (1) Pain that becomes more severe, steady, or becomes concentrated in one specific area. Also, pain that is more severe with movement or coughing. (2) Vomiting that persists or becomes more frequent. (3) Blood in the vomitus, urine, or bowel movements. Blood in the stool may have a tarry or black appearance. (4) Shaking chills or fever greater than 100 degrees F. (5) The abdomen becomes more distended or swollen. (6) Bowel movements cease. (7) Failure to improve as expected. NORMAL EXAM AND WORKUP: At this time, with the exception of your CT scan findings of a small umbilical hernia of fat, your examination and workup show no significant abnormality. No significant abnormal physical findings are noted. All laboratory, EKG, and imaging (x-ray, CT scans, ultrasound) studies that were ordered show no significant abnormality. Although your examination and all studies that were ordered showed no significant abnormal finding, there are no examinations and no studies that are 100% accurate. There is always the possibility that some abnormality could exist and not be detected with physical examination or within the limits and capabilities of laboratory and other studies. You should return or follow up as you were instructed on your visit today for further evaluation if your symptoms do not resolve. Umbilical Hernia There is a hernia in the belly-button area, called an umbilical hernia. There's a weak spot in the abdominal wall where the umbilical cord was attached. Sometimes this weak spot opens up, and bowel slips out of the abdominal cavity, creating a bulge under the skin at the naval. In infants, a small umbilical hernia may seal off by itself. Adults usually need surgery to repair the hernia. It's important that you follow up as recommended. For now, avoid straining , heavy lifting, and vigorous exercise. If the hernia has just appeared and the naval area is painful, apply ice packs to reduce swelling. Complications occur if bowel gets tightly stuck in the hernia. You should come back immediately if the area becomes increasingly painful, swollen, or discolored, or if you develop abdominal pain and vomiting. Your umbilical hernia contains fat tissue, but no bowel. Therefore, there is no obstruction or perforation or need for surgery. Fat containing hernias can be painful but otherwise are not considered surgical conditions. Another possibility is that with your known condition of PCO S, you might have ruptured an ovarian cyst which could cause you to have pain, but leaves no residual findings that you can see on a CT scan. ANT[place]AUSEA MEDICATION: You have been given a medication to suppress nausea and vomiting. This type of medication can be given as a shot, pill, or suppository. It will usually last for many hours. Pills and shots usually last six to eight hours, suppositories last about 12 hours. For the typical illness, only one or two doses of the medication may be necessary. Mild lightheadedness may occur. This type of medicine can cause drowsiness. Do not drive or operate dangerous machinery while under its influence. Do not mix with alcohol. See your doctor at once if you have muscle spasms or tightness, or uncontrollable motions (particularly of the neck, mouth, or jaw). Persistent vomiting or severe lightheadedness should also be evaluated by the physician. You have indicated that you have pain medications as well as nausea medication at home and wished to take that medicine and not be prescribed any more medication by us perry. FOLLOW-UP CARE: If you have been referred to a physician for follow-up care, call the physician s office for an appointment as you were instructed or within the next two days. If you experience worsening or a significant change in your symptoms, notify the physician immediately or return to the Emergency Department at any time for re-evaluation. If it anytime tomorrow, you are feeling worse, return for us to reevaluate your condition. Referrals: MARCUS TROTTER MD [Primary Care Provider] - Follow up as needed
[2017-09-14 19:52] VITALS: BP 135/91
== END 2017-09-14 19:30 | disposition home or self-care (01) ==
LOC: ER 11:17
DX: K40.90 Unilateral inguinal hernia, without obstruction or gangrene, not specified as recurrent (principal); E28.2 Polycystic ovarian syndrome; Z79.3 Long term (current) use of hormonal contraceptives; Z79.899 Other long term (current) drug therapy; E66.3 Overweight; Z68.41 Body mass index [BMI] 40.0-44.9, adult; R10.33 Periumbilical pain; R11.0 Nausea; R55 Syncope and collapse; R61 Generalized hyperhidrosis; Z87.19 Personal history of other diseases of the digestive system; Z90.49 Acquired absence of other specified parts of digestive tract
CPT/HCPCS: 93005; 99284; 96374; 36415; 85025; 81025; 80053; 81001; 74177; 93010; J2405

== ENCOUNTER → 2017-11-23 | Outpatient (CLI) | payer BC ==
--- NOTE | 2017-11-23 13:19 | RADIOLOGY REPORT (SQ) ---
EXAM DESCRIPTION: CT ABD/PELVIS NO ORAL OR IV COMPLETED DATE/TIME: 11/23/2017 12:57 pm REASON FOR STUDY: RLQ PAIN (R10.31) R10.31 RIGHT LOWER QUADRANT PAIN COMPARISON: Multiple previous CT abdomen pelvis exams including 09/14/2017, 07/02/2016, 06/09/2016, 06/04, 05/08/2016 TECHNIQUE: CT scan of the abdomen and pelvis performed without intravenous or oral contrast. Images reviewed with lung, soft tissue, and bone windows. Reconstructed coronal and sagittal MPR images revi ewed. All images stored on PACS. All CT scanners at this facility use dose modulation, iterative reconstruction, and/or weight based d osing when appropriate to reduce radiation dose to as low as reasonably achievable (ALARA). [facility]: Dose Right [facility]: CareDose [facility]: Dose Right [facility]: Teradose 4D [facility]: [employer] RADIATION DOSE: CT Rad equipment meets quality standard of care and radiation dose reduction techniq ues were employed. CTDIvol: 27.8 mGy. DLP: 1626 mGy-cm.mGy. LIMITATIONS: None. FINDINGS: Patient had multiple episodes of diverticulitis without abscess. She is post sigmoid franklin ctomy, with a row of anastomotic fernando at the rectosigmoid on axial images 73-75. Few colonic dive rticuli are present on the current study without CT evidence of acute diverticulitis. The right ovary measures 5 x 3.4 cm on axial image 75. This is larger than on 09/14/2014 were it tony ured about 3.7 x 3 cm in size. Patient may have a right ovarian cyst causing right lower quadrant pa in. Normal appendix, retrocecal location axial images 66-71. No free pelvic fluid. LOWER CHEST: No significant findings. No nodules or infiltrates. NON-CONTRASTED LIVER, SPLEEN, ADRENALS: Evaluation limited by lack of IV contrast. No identified sign ificant masses. PANCREAS: No masses. No peripancreatic inflammatory changes. GALLBLADDER: Surgically absent RIGHT KIDNEY AND URETER: No suspicious masses. Assessment limited by lack of IV contrast. No signif icant calcifications. No hydronephrosis or hydroureter. LEFT KIDNEY AND URETER: No suspicious masses. Assessment limited by lack of IV contrast. No signifi cant calcifications. No hydronephrosis or hydroureter. AORTA AND RETROPERITONEUM: No aneurysm. No retroperitoneal masses or adenopathy. BOWEL AND PERITONEAL CAVITY: No free intraperitoneal air or fluid. No CT evidence of bowel obstructi on. No CT findings worrisome for diverticulitis or appendicitis. Post sigmoid colectomy. APPENDIX: Normal. PELVIS, BLADDER, AND ABDOMINAL WALL:Urinary bladder, abdominal wall unremarkable. No free pelvic flu id. No adenopathy. Uterus, left ovary unremarkable. Right ovary as above BONES: No significant findings. OTHER: No other significant finding. IMPRESSION: Enlarged right ovary compared to previous studies, question right ovarian cyst. No CT evidence of appendicitis. Post sigmoid colectomy. No CT evidence of acute diverticulitis COMMENT: Quality ID # [id number]: Final reports with documentation of one or more dose reduction techniques (e.g., Automated exposure control, adjustment of the mA and/or kV according to patient size, use of iterative reconstruction technique) TECHNICAL DOCUMENTATION: JOB ID: [id number] [employer]- All Rights Reserved Reading location - IP/workstation name: [facility]
[2017-11-23 13:33] LABS: ABSOLUTE BASOPHILS # (AUTO) 0.1 10^3/uL (0.0-0.2); ABSOLUTE EOSINOPHILS # (AUTO) 0.1 10^3/uL (0.0-0.6); ABSOLUTE LYMPHOCYTES (AUTO) 2.5 10^3/uL (0.5-4.7); ABSOLUTE MONOCYTES (AUTO) 0.6 10^3/uL (0.1-1.4); ABSOLUTE NEUT (AUTO) 12.1 10^3/uL (1.7-8.2); BASOPHILS % (AUTO) 0.5 % (0-2); EOSINOPHILS % (AUTO) 0.9 % (0-6); HEMATOCRIT 40.1 % (36.0-47.0); HEMOGLOBIN 13.9 g/dL (12.0-15.5); LYMPHOCYTES % (AUTO) 16.3 % (13-45); MEAN CORPUSCULAR HEMOGLOBIN 31.1 pg (27.0-33.4); MEAN CORPUSCULAR HGB CONC 34.8 g/dL (32.0-36.0); MEAN CORPUSCULAR VOLUME 89 fl (80-97); PLATELET COUNT 231 10^3/uL (150-450); RED BLOOD COUNT 4.48 10^6/uL (3.72-5.28); SEGMENTED NEUTROPHILS % (AUTO) 78.3 % (42-78); TOTAL CELLS COUNTED % (AUTO) 100 %; WHITE BLOOD COUNT 15.5 10^3/uL (4.0-10.5)
[2017-11-23 13:58] LABS: ALANINE AMINOTRANSFERASE 37 U/L (9-52); ALBUMIN 4.1 g/dL (3.5-5.0); ALKALINE PHOSPHATASE 80 U/L (38-126); ANION GAP 16 (5-19); ASPARTATE AMINO TRANSFERASE 20 U/L (14-36); BILIRUBIN,DIRECT 0.4 mg/dL (0.0-0.4); BILIRUBIN,TOTAL 0.8 mg/dL (0.2-1.3); BLOOD UREA NITROGEN 16 mg/dL (7-20); CALCIUM 9.1 mg/dL (8.4-10.2); CARBON DIOXIDE 24 mmol/L (22-30); CHLORIDE 103 mmol/L (98-107); GLUCOSE 134 mg/dL (75-110); LIPASE 41.7 U/L (23-300); POTASSIUM 4.1 mmol/L (3.6-5.0); SODIUM 142.6 mmol/L (137-145); TOTAL PROTEIN 7.1 g/dL (6.3-8.2)
== END ==
LOC: RAD 12:33
PROVIDERS: ATTEND Physician Assistant
DX: R10.31 Right lower quadrant pain (principal); R82.90 Unspecified abnormal findings in urine
CPT/HCPCS: 36415; 74176; 80053; 83690; 85025; 87086

== ENCOUNTER 2019-08-23 08:59 | Emergency (ER) | payer BC, OTHER ==
--- NOTE | 2019-08-23 09:24 | EKG REPORT ---
SEVERITY:- ABNORMAL ECG - SINUS TACHYCARDIA NONSPECIFIC T ABNORMALITIES, INFERIOR LEADS : Confirmed by: Radha Lyman 23-Aug-2019 09:23:47
--- NOTE | 2019-08-23 09:34 | ER Document Report ---
ED General - General Chief Complaint: Flank Pain Stated Complaint: RIGHT FLANK PAIN Time Seen by Provider: 08/23/19 09:09 Primary Care Provider: BAKARI NORTON PA [Primary Care Provider] - Follow up as needed Information source: Patient TRAVEL OUTSIDE OF THE [place] IN LAST 30 DAYS: No - HPI Onset: Last week Onset/Duration: Gradual, Worse Quality of pain: Throbbing Severity: Moderate Pain Level: 2 Context: Patient is a 43-year-old female presenting to the emergency department chief complaint of right flank and back pain. Patient states she was seen by telemedicine on Thursday and prescribed Cipro for presumed urinary tract i nfection. Patient states since that point in time she has been taking her medication but the pain has intensified. Patient further states she is currently on her menstrual cycle. Patient states that she has been on her menses for approximately 1 month. 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 Patient denies travel history trauma history sick contacts no one else at home is ill. Patient currently is not working. Associated symptoms: None Exacerbated by: Denies Relieved by: Denies Similar symptoms previously: Yes Recently seen / treated by doctor: Yes - Related Data Allergies/Adverse Reactions: prednisone [Prednisone] Adverse Reaction (Verified 12/03/16 11:21) Home Medications: cipro Past Medical History - General Information source: Patient - Social History Smoking Status: Never Smoker Chew tobacco use (# tins/day): No Frequency of alcohol use: None Drug Abuse: None Lives with: Alone Family History: Reviewed & Not Pertinent, CAD - Paternal grandmother with coronary artery disease., DM Patient has suicidal ideation: No Patient has homicidal ideation: No - Past Medical History Cardiac Medical History: Denies: Hx Coronary Artery Disease, Hx Heart Attack, Hx Hypertension Pulmonary Medical History: Denies: Hx Asthma, Hx Bronchitis, Hx COPD, Hx Pneumonia Neurological Medical History: Denies: Hx Cerebrovascular Accident, Hx Seizures Endocrine Medical History: Reports: Hx Diabetes Mellitus Type 2 - pre diabetic Renal/ Medical History: Reports: Other - Dysfunctional uterine bleeding. Denies: Hx Peritoneal Dialysis GI Medical History: Reports: Hx Diverticulitis Musculoskeletal Medical History: Denies Hx Arthritis Psychiatric Medical History: Reports: Hx Depression Past Surgical History: Reports: Hx Cholecystectomy, Other - Sinus surgery 3. Ear tubes.. Denies: Hx Hysterectomy - Immunizations Hx Diphtheria, Pertussis, Tetanus Vaccination: No Review of Systems - Review of Systems Constitutional: No symptoms reported EENT: No symptoms reported Cardiovascular: No symptoms reported Respiratory: No symptoms reported Gastrointestinal: See HPI Genitourinary: See HPI Female Genitourinary: See HPI Musculoskeletal: See HPI Skin: No symptoms reported Hematologic/Lymphatic: No symptoms reported Neurological/Psychological: No symptoms reported -: Yes All other systems reviewed and negative Physical Exam - Vital signs Vitals: Temp Pulse Resp BP Pulse Ox 98.3 F 150 H 20 156/107 H 98 08/23/19 09:06 08/23/19 09:06 08/23/19 09:06 08/23/19 09:06 08/23/19 09:06 - Notes Notes: PHYSICAL EXAMINATION: GENERAL: Well-appearing, well-nourished and in no acute distress. HEAD: Atraumatic, normocephalic. EYES: Pupils equal round and reactive to light, extraocular movements intact, sclera anicteric, conjunctiva are normal. ENT: nares patent, oropharynx clear without exudates. Moist mucous membranes. NECK: Normal range of motion, supple without lymphadenopathy, no appreciable JVD LUNGS: Lungs clear to auscultation bilaterally and equal. No wheezes rales or rhonchi. HEART: Tachycardic rate and rhythm without murmurs ABDOMEN: Soft, minimally tender, normal bowel sounds. No guarding, no rebound. No masses appreciated. Right sided flank pain EXTREMITIES: Active full range of motion, no pitting or edema. No cyanosis. 2+ pulses x4 NEUROLOGICAL: No focal neurological deficits. Moves all extremities spontaneously and on command. SKIN: Warm, Dry, and intact. Normal turgor, no rashes or lesions noted. Course - Re-evaluation Re-evalutation: 08/23/19 10:41 On review of the patient's laboratory studies patient has a markedly elevated glucose level of 313. Patient states multiple family members are diabetic and she was questioning whether or not she may be diabetic but had lost some weight and her doctor stopped observing. Patient's blood work will be evaluated for hydroxybutyric acid and hemoglobin A1c fingerstick will be performed at this time after a liter of fluid and a CT abdomen pelvis stone protocol will be performed. Accu-Chek was 275. 08/23/19 11:47 On reevaluation at this time the patient is resting comfortably in hospital bed we have reviewed her laboratory and radiologic results. Patient states that she is aware of abnormally large ovaries bilaterally and will follow-up with her INFORMATION SYSTEMS SECURITY OFFICER. There is no signs of urinary tract infection or renal or ureteral calculi. Patient has been found to have significantly elevated glucose level and will be started on Metformin. Patient is agreeable with care plan. Patient has been reevaluated several times while in the emergency department. Patient has remained stable without decompensation. After review of applicable laboratory and/or radiologic results, there are no signs of acute abdomen to include: acute appendicitis, pancreatitis, cholelithiasis or cholecystitis, bowel obstruction or ileus, there are no signs of Aortic Dissection, diverticulitis or diverticulosis, Kidney abnormalities to include urinary tract infection, renal failure or kidney stones. From a director of creative services standpoint, there is no signs of / complication, no signs of Ectopic , or miscarriage, no signs of Ovarian torsion or any other acute life-threatening process At this time I feel the patient is stable for discharge. I have reviewed the laboratory and/or radiologic results with the patient answered all questions. Patient is agreeable with discharge at this time. Patient is recommended to follow-up with primary care provider in the next several days for follow-up. Patient should return to the emergency department for worsening symptoms to include worsening pain, bloody vomitus, bloody diarrhea, inability to tolerate fluids or fever greater than 101 orally. - Vital Signs Vital signs: Temp Pulse Resp BP Pulse Ox 98.3 F 150 H 13 150/69 H 99 08/23/19 09:06 08/23/19 09:06 08/23/19 10:12 08/23/19 10:12 08/23/19 10:12 - Laboratory Result Diagrams: 08/23/19 09:30 08/23/19 09:30 Laboratory results interpreted by me: 08/23/19 08/23/19 08/23/19 09:30 09:30 09:30 WBC 15.6 H Band Neutrophils % 1 L Lymphocytes % (Manual) 10 L Abs Neuts (Manual) 11.5 H Abs Monocytes (Manual) 2.0 H Sodium 131.0 L Chloride 94 L Glucose 313 H POC Glucose Hemoglobin A1c % 9.5 H Alkaline Phosphatase 184 H Urine Protein Urine Glucose (UA) Urine Ketones Urine Blood 08/23/19 08/23/19 09:50 10:39 WBC Band Neutrophils % Lymphocytes % (Manual) Abs Neuts (Manual) Abs Monocytes (Manual) Sodium Chloride Glucose POC Glucose 275 H Hemoglobin A1c % Alkaline Phosphatase Urine Protein 30 H Urine Glucose (UA) >=500 H Urine Ketones 80 H Urine Blood MODERATE H - Diagnostic Test Radiology reviewed: Reports reviewed - EKG Interpretation by Me EKG shows normal: Sinus rhythm Rate: Tachycardia Rhythm: NSR When compared to previous EKG there are: Changes noted Discharge - Discharge Clinical Impression: Elevated random blood glucose level Condition: Stable Disposition: HOME, SELF-CARE Prescriptions: Metformin HCl [Glucophage 500 mg Tablet] 500 mg PO BID #60 tablet Referrals: BAKARI NORTON PA [Primary Care Provider] - Follow up as needed
[2019-08-23 09:58] LABS: PROTHROMBIN TIME 13.2 SEC (11.4-15.4)
[2019-08-23 10:04] LABS: ALBUMIN 3.5 g/dL (3.5-5.0); ALKALINE PHOSPHATASE 184 U/L (38-126); ANION GAP 15 (5-19); ASPARTATE AMINO TRANSFERASE 31 U/L (14-36); BILIRUBIN,DIRECT 0.1 mg/dL (0.0-0.4); BILIRUBIN,TOTAL 0.9 mg/dL (0.2-1.3); BLOOD UREA NITROGEN 8 mg/dL (7-20); CALCIUM 8.9 mg/dL (8.4-10.2); CARBON DIOXIDE 22 mmol/L (22-30); CHLORIDE 94 mmol/L (98-107); GLUCOSE 313 mg/dL (75-110); POTASSIUM 4.1 mmol/L (3.6-5.0); TOTAL PROTEIN 6.9 g/dL (6.3-8.2)
[2019-08-23 10:05] LABS: HEMATOCRIT 43.2 % (36.0-47.0); HEMOGLOBIN 15.3 g/dL (12.0-15.5); MEAN CORPUSCULAR HEMOGLOBIN 31.4 pg (27.0-33.4); MEAN CORPUSCULAR HGB CONC 35.3 g/dL (32.0-36.0); MEAN CORPUSCULAR VOLUME 89 fl (80-97); PLATELET COUNT 213 10^3/uL (150-450); RED BLOOD COUNT 4.85 10^6/uL (3.72-5.28); RED CELL DISTRIBUTION WIDTH 12.9 % (11.5-14.0); WHITE BLOOD COUNT 15.6 10^3/uL (4.0-10.5)
[2019-08-23 10:18] LABS: APPEARANCE,URINE SLIGHTLY-CLOUDY; BILIRUBIN,URINE NEGATIVE (NEGATIVE); COLOR,URINE YELLOW; GLUCOSE, URINE >=500 mg/dL (NEGATIVE); KETONES,URINE 80 mg/dL (NEGATIVE); LEUKOCYTE ESTERASE,URINE NEGATIVE (NEGATIVE); NITRITE,URINE NEGATIVE (NEGATIVE); PROTEIN,URINE 30 mg/dL (NEGATIVE); URINE SPECIFIC GRAVITY 1.029; UROBILINOGEN,URINE NEGATIVE mg/dL (<2.0)
[2019-08-23 10:25] LABS: BAND NEUTROPHILS % (MANUAL) 1 % (3-5); BASOPHILS % (MANUAL) 0 % (0-2); EOSINOPHILS % (MANUAL) 0 % (0-6); LYMPHOCYTES % (MANUAL) 10 % (13-45); MONOCYTES % (MANUAL) 13 % (3-13); SEGMENTED NEUTROPHILS % (MAN) 73 % (42-78); TOTAL CELLS COUNTED 100
[2019-08-23 10:26] LABS: PLATELET COMMENT ADEQUATE; POLYCHROMASIA SLIGHT; TOXIC GRANULATION 1+; TOXIC VACUOLATION PRESENT
--- NOTE | 2019-08-23 11:11 | RADIOLOGY REPORT (SQ) ---
EXAM DESCRIPTION: CT ABD/PELVIS NO ORAL OR IV IMAGES COMPLETED DATE/TIME: 08/23/2019 10:53 am REASON FOR STUDY: r flank pain COMPARISON: 11/23/2017 TECHNIQUE: CT scan of the abdomen and pelvis performed without intravenous or oral contrast. Images reviewed with lung, soft tissue, and bone windows. Reconstructed coronal and sagittal MPR images revi ewed. All images stored on PACS. All CT scanners at this facility use dose modulation, iterative reconstruction, and/or weight based d osing when appropriate to reduce radiation dose to as low as reasonably achievable (ALARA). [facility]: Dose Right [facility]: CareDose [facility]: Dose Right [facility]: Teradose 4D [facility]: [employer] RADIATION DOSE: CT Rad equipment meets quality standard of care and radiation dose reduction techniq ues were employed. CTDIvol: 18.7 mGy. DLP: 1088 mGy-cm.mGy. LIMITATIONS: None. FINDINGS: LOWER CHEST: No significant findings. No nodules or infiltrates. NON-CONTRASTED LIVER, SPLEEN, ADRENALS: Evaluation limited by lack of IV contrast. No identified sign ificant masses. PANCREAS: No masses. No peripancreatic inflammatory changes. GALLBLADDER: Surgically absent. RIGHT KIDNEY AND URETER: No suspicious masses. Assessment limited by lack of IV contrast. No signif icant calcifications. No hydronephrosis or hydroureter. LEFT KIDNEY AND URETER: No suspicious masses. Assessment limited by lack of IV contrast. No signifi cant calcifications. No hydronephrosis or hydroureter. AORTA AND RETROPERITONEUM: No aneurysm. No retroperitoneal masses or adenopathy. BOWEL AND PERITONEAL CAVITY: No obvious masses or inflammatory changes. No free fluid. APPENDIX: Normal. PELVIS, BLADDER, AND ABDOMINAL WALL:Umbilical hernia containing omental fat and small bowel. This is stable in appearance no obstruction. The right ovary is enlarged measured 7.1 x 5.1 cm. Previously this measured approximately 3.4 x 5.0 cm. The left ovary measures 6.3 x 4.2 cm. No free fluid. BONES: No significant findings. OTHER: No other significant finding. IMPRESSION: Both ovaries are quite large in size as described. These have increased in size when co mpared to 11/23/2017. No free fluid. Correlation with pelvic ultrasound is recommended. No other sig nificant findings in the abdomen or pelvis. Small umbilical hernia containing omental fat and small bowel. No obstruction. COMMENT: Quality ID # [id number]: Final reports with documentation of one or more dose reduction techniques (e.g., Automated exposure control, adjustment of the mA and/or kV according to patient size, use of iterative reconstruction technique) TECHNICAL DOCUMENTATION: JOB ID: [id number] 2010 [employer]- All Rights Reserved Reading location - IP/workstation name: [email or web address]
[2019-08-23 12:05] VITALS: BP 133/81
== END 2019-08-23 12:03 | disposition home or self-care (01) ==
LOC: ER 08:59
DX: R73.9 Hyperglycemia, unspecified (principal); R10.9 Unspecified abdominal pain; M54.9 Dorsalgia, unspecified; R10.819 Abdominal tenderness, unspecified site; N93.8 Other specified abnormal uterine and vaginal bleeding; R00.0 Tachycardia, unspecified; Z90.49 Acquired absence of other specified parts of digestive tract; Z83.3 Family history of diabetes mellitus
CPT/HCPCS: 36415; 74176; 80053; 81001; 81025; 82010; 82962; 83036; 85025; 85610; 93005; 93010; 99284

== ENCOUNTER → 2019-11-15 | Outpatient (CLI) | payer BC ==
[2019-11-15 10:13] LABS: ALBUMIN 4.3 g/dL (3.5-5.0); ALKALINE PHOSPHATASE 63 U/L (38-126); ANION GAP 7 (5-19); ASPARTATE AMINO TRANSFERASE 28 U/L (14-36); BILIRUBIN,TOTAL 0.3 mg/dL (0.2-1.3); BLOOD UREA NITROGEN 19 mg/dL (7-20); CALCIUM 9.4 mg/dL (8.4-10.2); CARBON DIOXIDE 27 mmol/L (22-30); CHLORIDE 104 mmol/L (98-107); GLUCOSE 155 mg/dL (75-110); POTASSIUM 4.9 mmol/L (3.6-5.0); TOTAL PROTEIN 7.6 g/dL (6.3-8.2)
== END ==
LOC: OD 08:42
PROVIDERS: ATTEND Internal Medicine
DX: E11.9 Type 2 diabetes mellitus without complications (principal); I10 Essential (primary) hypertension
CPT/HCPCS: 36415; 80053; 83036; 83525; 84681

== ENCOUNTER 2020-02-03 17:39 | Emergency (ER) | payer BC ==
[2020-02-03 18:26] VITALS: BP 130/79
--- NOTE | 2020-02-03 18:33 | ER Document Report ---
ED Medical Screen (RME) - General Chief Complaint: Abdominal Pain Stated Complaint: ABDOMINAL PAIN Time Seen by Provider: 02/03/20 18:24 Primary Care Provider: ALLAN RUBALCAVA MD [Primary Care Provider] - Follow up as needed Mode of Arrival: Ambulatory Information source: Patient Notes: 44-year-old female presented to ED for complaint of right lower abdominal pain. She states she has not had any fever nausea or vomiting or diarrhea. She states she was sitting in a chair when she pushed back her little dog jumped on the right side of her abdomen. She states she is extremely concerned because she had a hysterectomy with bladder tack and removal of adhesions from her colon in August and this is the first time she has had pain since that. She states in she had a colon resection because of a ruptured colon and they took her a large part of her colon and in August she had infection in her uterus and so they did complete hysterectomy. She states she is also had a sinus surgery cholecystectomy she has a history of diabetes high blood pressure migraines colonoscopy and endoscopy and depression. She is alert oriented respirations regular nonlabored speaking in full sentences. I have greeted and performed a rapid initial assessment of this patient. A comprehensive ED assessment and evaluation of the patient, analysis of test results and completion of medical decision making process will be conducted by an additional ED providers. TRAVEL OUTSIDE OF THE [place] IN LAST 30 DAYS: No - Related Data Allergies/Adverse Reactions: prednisone [Prednisone] Adverse Reaction (Verified 12/03/16 11:21) Home Medications: metformin, trulicity, Past Medical History - Social History Frequency of alcohol use: None Drug Abuse: None Family history: Reviewed & Not Pertinent - Past Medical History Cardiac Medical History: Denies: Hx Coronary Artery Disease, Hx Heart Attack, Hx Hypertension Pulmonary Medical History: Denies: Hx Asthma, Hx Bronchitis, Hx COPD, Hx Pneumonia Neurological Medical History: Denies: Hx Cerebrovascular Accident, Hx Seizures Endocrine Medical History: Reports: Hx Diabetes Mellitus Type 2 - pre diabetic Renal/ Medical History: Denies: Hx Peritoneal Dialysis GI Medical History: Reports: Hx Diverticulitis Musculoskeltal Medical History: Denies Hx Arthritis Psychiatric Medical History: Reports: Hx Depression Past Surgical History: Reports: Hx Cholecystectomy, Other - Sinus surgery 3. Ear tubes.. Denies: Hx Hysterectomy - Immunizations Hx Diphtheria, Pertussis, Tetanus Vaccination: No Physical Exam - Vital signs Vitals: Temp Pulse Resp BP Pulse Ox 98.2 F 96 18 130/79 H 98 02/03/20 18:25 02/03/20 18:25 02/03/20 18:25 02/03/20 18:25 02/03/20 18:25 Course - Vital Signs Vital signs: Temp Pulse Resp BP Pulse Ox 98.2 F 96 18 130/79 H 98 02/03/20 18:25 02/03/20 18:25 02/03/20 18:25 02/03/20 18:25 02/03/20 18:25 Doctor's Discharge - Discharge Referrals: ALLAN RUBALCAVA MD [Primary Care Provider] - Follow up as needed
[2020-02-03 19:15] LABS: ABSOLUTE BASOPHILS # (AUTO) 0.1 10^3/uL (0.0-0.2); ABSOLUTE EOSINOPHILS # (AUTO) 0.1 10^3/uL (0.0-0.6); ABSOLUTE LYMPHOCYTES (AUTO) 2.3 10^3/uL (0.5-4.7); ABSOLUTE MONOCYTES (AUTO) 0.4 10^3/uL (0.1-1.4); ABSOLUTE NEUT (AUTO) 3.8 10^3/uL (1.7-8.2); BASOPHILS % (AUTO) 0.8 % (0-2); EOSINOPHILS % (AUTO) 2.1 % (0-6); HEMATOCRIT 46.1 % (36.0-47.0); HEMOGLOBIN 15.7 g/dL (12.0-15.5); LYMPHOCYTES % (AUTO) 34.5 % (13-45); MEAN CORPUSCULAR HEMOGLOBIN 29.8 pg (27.0-33.4); MEAN CORPUSCULAR HGB CONC 34.1 g/dL (32.0-36.0); MEAN CORPUSCULAR VOLUME 87 fl (80-97); MONOCYTES % (AUTO) 5.9 % (3-13); PLATELET COUNT 238 10^3/uL (150-450); RED BLOOD COUNT 5.27 10^6/uL (3.72-5.28); RED CELL DISTRIBUTION WIDTH 13.9 % (11.5-14.0); SEGMENTED NEUTROPHILS % (AUTO) 56.7 % (42-78); TOTAL CELLS COUNTED % (AUTO) 100 %; WHITE BLOOD COUNT 6.8 10^3/uL (4.0-10.5)
[2020-02-03 19:18] LABS: APPEARANCE,URINE SLIGHTLY-CLOUDY; BILIRUBIN,URINE NEGATIVE (NEGATIVE); COLOR,URINE YELLOW; GLUCOSE, URINE NEGATIVE (NEGATIVE); KETONES,URINE TRACE mg/dL (NEGATIVE); LEUKOCYTE ESTERASE,URINE SMALL (NEGATIVE); NITRITE,URINE NEGATIVE (NEGATIVE); PROTEIN,URINE 30 mg/dL (NEGATIVE); URINE SPECIFIC GRAVITY 1.034
[2020-02-03 19:32] LABS: ALBUMIN 4.9 g/dL (3.5-5.0); ALKALINE PHOSPHATASE 64 U/L (38-126); ANION GAP 9 (5-19); ASPARTATE AMINO TRANSFERASE 35 U/L (14-36); BILIRUBIN,DIRECT 0.3 mg/dL (0.0-0.4); BILIRUBIN,TOTAL 0.8 mg/dL (0.2-1.3); BLOOD UREA NITROGEN 22 mg/dL (7-20); CALCIUM 9.5 mg/dL (8.4-10.2); CARBON DIOXIDE 30 mmol/L (22-30); CHLORIDE 100 mmol/L (98-107); GLUCOSE 122 mg/dL (75-110); POTASSIUM 4.7 mmol/L (3.6-5.0); TOTAL PROTEIN 8.3 g/dL (6.3-8.2)
== END 2020-02-03 21:10 | disposition left against medical advice (07) ==
LOC: ER 17:39
DX: R10.30 Lower abdominal pain, unspecified (principal); W54.1XXA Struck by dog, initial encounter; E11.9 Type 2 diabetes mellitus without complications; I10 Essential (primary) hypertension; Z90.710 Acquired absence of both cervix and uterus; Z98.890 Other specified postprocedural states; Z90.49 Acquired absence of other specified parts of digestive tract; Z53.20 Procedure and treatment not carried out because of patient's decision for unspecified reasons
CPT/HCPCS: 36415; 80053; 81001; 85025; 87086; 99281